=== PATIENT | male | born 1940 | race Caucasian/White ===

== ENCOUNTER → 2019-01-20 06:59 | Outpatient (CLI) | payer MEDICARE, OTHER, SELFPAY ==
[2018-10-01 11:34] VITALS: BMI 36.3
--- NOTE | 2019-01-20 13:40 | STRESSREP_ITS ---
Stress Test Report Date: 01-20-19 Procedure: Pharmacologic stress nuclear imaging study Indications: Chest pain/angina pectoris; CAD; CABG Consent: Per the patient Procedure: The patient underwent pharmacologic (Regadenoson) evaluation with a peak heart rate of 79 beats per minute (55 %predicted maximal heart rate) and a peak blood pressure of 130/86 mmHg. The baseline ECG demonstrated sinus rhythm; left bundle branch block. The peak pharmacologic ECG demonstrated continued left bundle branch block pattern. There was a rare PVC pretest, during infusion, and recovery. The patient noted waxing and waning chest discomfort during infusion/recovery with spontaneous resolution in recovery. The examination was discontinued secondary to completion of protocol. Impression: 1. Pharmacologic (Regadenoson) evaluation 2. Peak pharmacologic ECG with continued left bundle branch block pattern. 3. There was a rare PVC pretest, during infusion, and recovery. 4. Nuclear images pending Myocardial perfusion imaging study: Technique: The patient was injected with 15.0 millicuries of technetium 99m Cardiolite and subsequently rest SPECT Cardiolite nuclear imaging was obtained in the horizontal long, vertical long, and short axis views. The patient underwent pharmacologic (Regadenoson) evaluation with a peak heart rate of 79 beats per minute (55 % percent predicted maximal heart rate) and a peak blood pressure of 130/86 mmHg. The patient was injected with 45.0 millicuries of technetium 99m Cardiolite and subsequently stress SPECT Cardiolite nuclear imaging was obtained in the horizontal long, vertical long, and short axis views. A gated Cardiolite study at peak stress was obtained. Interpretation: Rest and stress SPECT Cardiolite nuclear imaging status post realignment, normalization, and attenuation correction demonstrate at rest the appearance of an area of diminished tracer uptake in portions of the distal anterior/anterior apical segments which appears to improve following stress. Following stress there is notation of diminished myocardial perfusion/tracer uptake in portions of the basal to mid inferior septal, inferior, and inferolateral segments as well as the distal inferior lateral segments. There is diminished end systolic thickening and brightening in the aforementioned areas. The gated Cardiolite study demonstrates diminished myocardial thickening and inward wall motion in the aforementioned areas. The reported LVEF is 40 %. Impression: 1. Rest and stress SPECT cardiac nuclear imaging demonstrate myocardial perfusion changes at rest which appear to improve following stress potentially compatible shifting soft tissue attenuation/artifact, however, post stress myocardial perfusion changes demonstrate areas of diminished myocardial perfusion/tracer uptake in portions of the basal to mid inferior septal, inferior, and inferolateral segments as well as the distal inferolateral segments which appear to improve at rest thus appearing compatible with stress- induced myocardial ischemia. 2. The gated Cardiolite study reports an LVEF of 40 %. This note was generated with [employer] software. It may contain incorrect words, spelling, and punctuation that were not noted in checking the note before signing.
== END ==
PROVIDERS: Family Provider Family Medicine; PCP Family Medicine; Referring Provider Nurse Practitioner Family; Visit Provider Nurse Practitioner Family
DX: R07.9 Chest pain, unspecified (principal); I25.810 Atherosclerosis of coronary artery bypass graft(s) without angina pectoris; I10 Essential (primary) hypertension; E78.5 Hyperlipidemia, unspecified; Z95.1 Presence of aortocoronary bypass graft
CPT/HCPCS: 78452; 93017; A9500; A4216; J2785

== ENCOUNTER 2019-01-24 02:57 | Inpatient (IN) | payer MEDICARE, OTHER, SELFPAY ==
[2018-10-01 11:34] VITALS: BMI 36.3
[2019-01-24] VITALS (12 sets, daily range): BP systolic 126–160; BP diastolic 70–78; PULSE 52–76; RESP 16–18; TEMP 36.6–37; O2SAT 94–99; BMI 36.6; BMI 36.0
--- NOTE | 2019-01-24 03:04 | RAD_ITS ---
HISTORY: Chest Pain EXAMINATION/TECHNIQUE: XR Chest 1 View: Portable COMPARISON: 04/26/2017 FINDINGS: EKG leads in place. No significant change. Limited inspiration with bibasilar mild scarring. No acute infiltrate. Normal heart size. No vascular congestion or significant pleural effusion. No pneumothorax. Median sternotomy sutures and mediastinal surgical clips related to previous CABG. RAD/Chest 1 View (Portable) IMPRESSION: 1. No acute cardiopulmonary disease. No significant interval change. 2. Bibasilar mild scarring. 3. Previous CABG. at 0336 Reported and signed by: Cooper Cavazos MD Electronically Signed: Cooper Cavazos, at 3:34 EDT Tel , Service support ,
--- NOTE | 2019-01-24 03:04 | EKG12_ITS ---
Test Reason : CP Blood Pressure : / mmHG Vent. Rate : 071 BPM Atrial Rate : 071 BPM P-R Int : 224 ms QRS Dur : 176 ms QT Int : 450 ms P-R-T Axes : 061 055 228 degrees QTc Int : 489 ms Sinus rhythm with 1st degree A-V block Left bundle branch block Abnormal ECG Confirmed by JOSE EMMANUEL, MADY ([id number]), commissioning editor MARK OBANDO ([id number]) on 01/30/2019 11:19:34 AM Referred By: Hemant Hernandez Confirmed By:MADY GARCIA MD
[2019-01-24 03:14] LABS: Absolute Lymphocyte Count 1.48 X10^3/uL (0.83-4.51); Absolute Neutrophil Count 3.9 X10^3/uL (2.0-7.7); Basophil# 0.04 X10^3/uL; Basophil% 0.6 % (0-1); Eosinophil# 0.11 X10^3/uL; Eosinophils% 1.8 % (0-5); Hematocrit 48.2 % (40-54); Hemoglobin 16.2 g/dL (13.0-16.5); Lymphocyte # 1.48 X10^3/ul (4.0); Lymphocyte % 23.8 % (19-41); Mean Corp Hgb Conc 33.6 g/dL (32-36); Mean Corpuscular Hgb 32.5 pg (27.0-32.0); Mean Corpuscular Volume 96.6 fL (80-94); Monocyte# 0.64 X10^3/uL; Monocyte% 10.3 % (0-10); NRBC Flagged by Analyzer 0 % (0-5); Neutrophil # 3.92 X10^3/uL (2.7-7.7); Platelet Count 185 K/mm3 (150-450); RBC Distribution Width CV 12.9 % (11.6-14.6); Red Blood Count 4.99 M/mm3 (4.6-6.2); White Blood Count 6.2 K/mm3 (4.4-11.0)
[2019-01-24 03:32] LABS: Anion Gap 5 (5-15); BUN 16 mg/dL (7-18); BUN/Creat Ratio 10.9 RATIO (10-20); Calcium,Total 8.9 mg/dL (8.5-10.1); Chloride 104 mmol/L (98-107); Creatinine, Serum 1.47 mg/dL (0.70-1.30); EST Glomerular Filtration Rate 49 mL/min (>60); Est Glom Filt Rate - Afr Amer 60 mL/min (>60); Estimated Creatinine Clearance 42.76 ml/min; Glucose 163 mg/dL (74-106); Potassium 3.8 mmol/L (3.5-5.1); Sodium Level 140 mmol/L (136-145)
--- NOTE | 2019-01-24 04:24 | ED.DCSUM_ITS ---
- ER Visit Summary Date of Service: 01/24/19 Chief Complaint: Chest pain History of Present Illness: The patient is a 78 M who presents the emergency department with chest pain. Patient states that over the past year he has had angina which he takes nitrates for. He describes it as a burning sensation in his chest that radiates to pain into the arm. He follows with Dr. Benoit. He had a 5 vessel CABG in 2000 in [facility]. He reports that he had a stress test on 01/20 which was abnormal and has subsequently scheduled a heart catheterization on 02/03. Tonight around 2230 hours he felt his anginal pain come on and he again took nitroglycerin. The symptoms were not abating and decision was made to come to the emergency department. By the time he arrived here he had had 5 nitroglycerin and was no longer having pain. He has a known left bundle branch block. Physical Examination: Afebrile vital signs stable Gen: Well-nourished well-developed Head: Normocephalic atraumatic Eyes: Perrl EOMI ENT: TMs clear no rhinorrhea moist mucous membranes Neck: Supple no lymphadenopathy no JVD nontender CVS: Regular rate rhythm no murmurs normal S1-S2 Respiratory: No distress clear to auscultation bilaterally chest nontender Abdomen: Soft nontender nondistended normal bowel sounds no masses Back: Nontender Extremity: Nontender no edema Skin: Normal color no rash Neuro: alert orientated ?3 CN II-XII intact normal strength sensation reflexes gait cerebellar Psych: Normal affect normal mood Test Results: EKG shows a normal sinus rhythm with a first-degree AV block and a known left bundle branch block. Creatinine 1.48. Last creatinine I have a year and half ago was 1.45. Troponin tonight 0.081. Emergency Department Course and Treatment: Patient received aspirin. I spoke with cardiology and her hospitalist. I also sat down spoke with the patient his and son. We talked about whether or not he should be transferred to tertiary care for a potential heart cath before Saturday. At this point he would like to stay here have his heart enzymes cycled and discuss with cardiology. Impression: 1. Unstable angina This note was generated with [email or web address] dictation software. It may contain incorrect words, spelling, and punctuation that were not noted in review of the chart prior to signing ED Disposition - Plan for ED Patient: Referrals: Matias Lopez [Primary Care Provider] -
[2019-01-24] MEDS: Aspirin 325 MG Tablet PO (04:26)
--- NOTE | 2019-01-24 04:33 | HP.PCM_ITS ---
Problem List (1) NSTEMI (non-ST elevated myocardial infarction) Status: Acute History of Present Illness Date of Admission: 01/24/19 Chief Complaint: Chest Pain The patient is a 78 year old M with a significant history of CAD status post 5 vessel CABG in 2000; and hypertension who recently had an abnormal stress test and is scheduled for cardiac cath on February 03 2019 presenting with substernal chest pain that radiates to his bilateral arms. His chest pain is episodic. It is a burning type of chest pain. However the pain in his arms is sharp. His chest pain started about 4 hours prior to presentation. He has had about a year span of intermittently chest Pain. Typically, he takes about 1 tablet of nitroglycerin and his pain goes away. This time around he took 1 tablet of nitroglycerin for 5 times. Each time he had some relief but the pain came back. He denies any nausea; vomiting; diaphoresis or chest pain associated with the pain. His chest pain increased with going up the stairs. He called his son who brought him to the emergency department. At the emergency department patient had no chest pain. The Emergency department doctor discussed the case with cardiology. Patient was given the choice to be transferred to a tertiary institution and probably have a heart cath over there or be admitted at our hospital. Patient chose to stay at our Hospital. He follows up with Dr. Benoit. A stress test done on 01/20/2019 was abnormal. Before this presentation an outpatient cardiac cath has been scheduled for February 03, 2019. As stated above for about a year he has had this chest pain that he calls 'angina'. The chest pain always radiates to his bilateral arms. Typically he takes one nitroglycerin and the pain goes away. In the past he has also took Tums with resolution of symptoms. On this presentation Tums did not help him. Past Medical History Past Medical History (Chronic Problems): Chronic Problems (Last Reviewed 01/24/19 @ 07:22 by Hemant Hernandez MD) Presence of aortocoronary bypass graft (Chronic ~09/2000) CABG with CASPER to LAD, SVG to diagonal 1 and sequential to diagonal 2, SVG to OM1, and SVG to RCA Essential hypertension (Chronic) Atherosclerosis of coronary artery bypass graft without angina pectoris (Chronic) Status post CABG with CASPER to LAD, SVG to diagonal 1 and sequential to diagonal 2, SVG to OM1, and SVG to RCA Hyperlipidemia (Chronic) Medical History: Medical History (Last Reviewed 01/24/19 @ 07:22 by Hemant Hernandez MD) Essential hypertension (Chronic) I10 Abnormal stress test (Acute) R94.39 Chest pain, unspecified (Acute) R07.9 Atherosclerosis of coronary artery bypass graft without angina pectoris (Chronic) I25.810 Status post CABG with CASPER to LAD, SVG to diagonal 1 and sequential to diagonal 2, SVG to OM1, and SVG to RCA Hyperlipidemia (Chronic) E78.5 DJD (degenerative joint disease) M19.90 History of stress test Onset Date: ~01/2013 Z92.89 CAD (coronary artery disease) (Inactive) I25.10 Hypertension (Inactive) I10 Allergies No Known Allergies Allergy (Verified 01/24/19 03:03) Home Medications: Ambulatory Orders Medication Instructions Recorded aspirin 81 mg tablet,delayed 81 mg PO QDAY 03/25/17 release atorvastatin 20 mg tablet 40 mg PO QDAY 03/25/17 losartan 100 1 tab PO QDAY 03/25/17 mg-hydrochlorothiazide 25 mg tablet metoprolol succinate ER 100 mg 100 mg PO QDAY 03/25/17 tablet,extended release 24 hr clopidogrel 75 mg tablet 75 mg PO QDAY #30 tab 04/24/17 nitroglycerin 0.4 mg sublingual 0.4 mg SUBLINGUAL Q5M PRN #25 tab 10/15/18 tablet ranolazine ER 1,000 mg 500 mg PO BID #60 tab 12/10/18 tablet,extended release,12 hr isosorbide mononitrate ER 60 mg 60 mg PO BID #60 tab 12/29/18 tablet,extended release 24 hr Surgical History: Surgical History (Last Reviewed 01/24/19 @ 05:21 by Hemant Hernandez MD) Presence of aortocoronary bypass graft (Chronic) Onset Date: ~09/2000 Z95.1 CABG with CASPER to LAD, SVG to diagonal 1 and sequential to diagonal 2, SVG to OM1, and SVG to RCA History of cholecystectomy Z98.890, Z90.49 History of hernia repair Z98.890, Z87.19 Hx of CABG Onset Date: ~09/2000 Z95.1 x5 S/P CABG (coronary artery bypass graft) (Inactive) Onset Date: ~2000 Z95.1 Status post CABG with CASPER to LAD, SVG to diagonal 1 and sequential to diagonal 2, SVG to OM1, and SVG to RCA Lives: Spouse/ Significant Other Smoking Status: Never smoker Alcohol: Occasional - *Family History Maternal Family History: Family History (Last Reviewed 01/24/19 @ 05:21 by Hemant Hernandez MD) Mother Hypertension Father Heart disease Review of Systems Constitutional: Denies: Chills, Fever, Weight Change HEENT: Denies: Head Aches, Sinus Congestion, Sinus Drainage Cardiovascular: Reports: Chest Pain. Denies: Palpitations Respiratory: Denies: Cough, Shortness of breath at rest, Sputum production Gastrointestinal: Denies: Abdominal Pain, Nausea, Vomiting Genitourinary: Denies: Dysuria Musculoskeletal: Reports: Arm Pain. Denies: Joint Pain, Joint Tenderness Skin: Denies: Rash, Wounds Neurological: Denies: Numbness, Tingling, Focal weakness Psychiatric: Denies: Anxiety, Depression, Homicidal Ideations, Suicidal I deations Hematologic/ Lymphatic: Denies: Easy Bruising, Easy Bleeding VTE Information - Inpt Only VTE Present on Admission: No VTE Mechan Device Prophylaxis: None VTE Pharm Prophylaxis ordered?: Yes Patient Problems: Active and Suspected Problems (Last Reviewed 01/24/19 @ 07:22 by Hemant Hernandez MD) NSTEMI (non-ST elevated myocardial infarction) (Acute) - Physical Exam General: Alert, Oriented x3, Cooperative HEENT: Atraumatic, PERRLA, EOMI, Normocephalic Neck: Supple, No JVD, Negative Carotid Bruits Lungs: Clear to auscultation, Normal air movement Cardiovascular: Regular rate, No murmurs Abdomen: Bowel Sounds Present, Soft, Non Tender Extremities: No edema, Capillary Refill Less than 3 Seconds Skin: No rashes, No breakdown Musculoskeletal: No Tenderness to Palpation of Joints or Extremities Neurological: Cranial nerves II-XII grossly intact Psych/Mental Status: Normal Affect, Appropriate Vital Signs Temp Pulse Resp BP Pulse Ox 98.6 F 68 18 160/75 H 96 01/24/19 02:58 01/24/19 04:24 01/24/19 04:24 01/24/19 02:58 01/24/19 04:24 Oxygen Delivery Method Room Air Weight: 115.7 kg Body Mass Index (BMI) 36.6 Laboratory Tests Past 24 Hrs 01/24/19 01/24/19 03:06 03:06 WBC 6.2 RBC 4.99 Hgb 16.2 Hct 48.2 MCV 96.6 H MCH 32.5 H MCHC 33.6 RDW Std Deviation 46.0 H RDW Coeff of [place] 12.9 Plt Count 185 MPV 9.0 Immature Gran % (Auto) 0.500 Neut % (Auto) 63.0 Lymph % (Auto) 23.8 [place] % (Auto) 10.3 H Eos % (Auto) 1.8 Baso % (Auto) 0.6 Absolute Neuts (auto) 3.9 Absolute Lymphs (auto) 1.48 Nucleated RBC % 0 Sodium 140 Potassium 3.8 Chloride 104 Carbon Dioxide 31.0 Anion Gap 5 BUN 16 Creatinine 1.47 H Estim Creat Clear Calc 42.76 Est GFR (MDRD) Af Amer 60 Est GFR (MDRD) Non-Af 49 L BUN/Creatinine Ratio 10.9 Glucose 163 H Calcium 8.9 Troponin I 0.081 H Assessment/Plan All Active Problems (Last Reviewed 01/24/19 @ 07:22 by Hemant Hernandez MD) NSTEMI (non-ST elevated myocardial infarction) (Acute) Abnormal stress test (Acute) Chest pain, unspecified (Acute) The patient is a 78 year old M with a significant history of CAD status post 5 vessel CABG in 2000; and hypertension who recently had an abnormal stress test and is scheduled for cardiac cath on January 2019 presenting with substernal chest pain that radiates to his bilateral arms and noted to have elevated troponin consistent with probable non-STEMI. Non-ST elevation NC Place on a monitored bed at PCU CXR independently reviewed confirms no acute cardiopulmonary process. EKG independently reviewed confirms left bundle branch block with first-degree AV block. Recent stress test showed baseline left bundle branch block. ASA 81 mg p.o. daily SL NTG 0.4 mg prn as needed for chest pain. Imdur; losartan; metoprolol; and ranolazine continued Statin: High-intensity statin continued Serial cardiac enzymes Stat EKG as needed for chest pain Cardiology consulted. CKD stage III On presentation his creatinine was 1.47. Review of old records showed creatinine of 1.45. Likely CKD; stable. Hypertension On presentation with blood pressure was erratic. Imdur; losartan?hydrochlorothiazide; and metoprolol continued. DVT prophylaxis Subcutaneous Heparin ordered. Code Visit Inpatient E&M: 36700 Init Hosp L3
--- NOTE | 2019-01-24 05:40 | EKG12_ITS ---
Test Reason : CP ADMISSION Blood Pressure : / mmHG Vent. Rate : 059 BPM Atrial Rate : 059 BPM P-R Int : 272 ms QRS Dur : 176 ms QT Int : 464 ms P-R-T Axes : 057 050 165 degrees QTc Int : 459 ms Sinus bradycardia with 1st degree A-V block Left bundle branch block Abnormal ECG No previous ECGs available Confirmed by DAXA EMMANUEL, PIETRO ([id number]), market editor MARK OBANDO ([id number]) on 01/30/2019 11:31:14 AM Referred By: Hemant Hernandez Confirmed By:PIETRO MITTAL MD
[2019-01-24] MEDS: Clopidogrel Bisulfate 75 MG Tablet PO (09:43)
[2019-01-24] MEDS: Aspirin E.C. 81 MG Tablet PO (09:43)
[2019-01-24] MEDS: Heparin Injection (Vial) 5,000 UNIT/ML VIAL 5000 UNIT SC (09:44)
[2019-01-24] MEDS: Isosorbide Mononitrate 60 MG Tablet PO ×2 (09:44→21:25)
[2019-01-24] MEDS: Losartan Potassium 100 MG Tablet PO (09:44)
[2019-01-24] MEDS: hydroCHLOROthiazide 25 MG Tablet PO (09:44)
[2019-01-24] MEDS: Ranolazine 500 MG Tablet PO ×2 (09:44→21:25)
--- NOTE | 2019-01-24 09:52 | PCM.PN.HOSP ---
Patient Problems: Active and Suspected Problems (Last Reviewed 01/24/19 @ 07:22 by Hemant Hernandez MD) NSTEMI (non-ST elevated myocardial infarction) (Acute) Subjective: No further chest pain. Similar to prior episodes of chest pain. Vitals/I&O's: Vital Signs Temp Pulse Resp BP Pulse Ox 36.8 C 52 L 18 143/72 H 94 01/24/19 05:43 01/24/19 08:02 01/24/19 05:43 01/24/19 05:43 01/24/19 07:30 Oxygen Delivery Method Room Air Weight: 113.9 kg Body Mass Index (BMI) 36.0 General: Alert, No apparent distress HEENT: Atraumatic, Normocephalic Oral: Moist Mucosa, No Gingival or Mucosal Lesions/ Ulcerations Neck: No Nodes, Thyroid Normal Size and Texture Lungs: Clear to auscultation, Normal air movement, No rhonchi, No wheeze, No rales Cardiovascular: Regular rate, Regular Rhythm, Normal S1, Normal S2, No murmurs Abdomen: Bowel Sounds Present, Soft, Non Tender, Non-Distended, No Hepato-splenomegaly Extremities: No edema, No Calf Tenderness Skin: No rashes, No breakdown Psych/Mental Status: Normal Affect, Appropriate Laboratory Results 01/24/19 03:06: WBC 6.2, RBC 4.99, Hgb 16.2, Hct 48.2, MCV 96.6 H, MCH 32.5 H, MCHC 33.6, RDW Std Deviation 46.0 H, RDW Coeff of Be[place] 12.9, Plt Count 185, MPV 9.0, Immature Gran % (Auto) 0.500, Neut % (Auto) 63.0, Lymph % (Auto) 23.8, [place] % (Auto) 10.3 H, Eos % (Auto) 1.8, Baso % (Auto) 0.6, Absolute Neuts (auto) 3.9, Absolute Lymphs (auto) 1.48, Nucleated RBC % 0 01/24/19 03:06: Sodium 140, Potassium 3.8, Chloride 104, Carbon Dioxide 31.0, Anion Gap 5, BUN 16, Creatinine 1.47 H, Estim Creat Clear Calc 42.76, Est GFR (MDRD) Af Amer 60, Est GFR (MDRD) Non-Af 49 L, BUN/Creatinine Ratio 10.9, Glucose 163 H, Calcium 8.9, Troponin I 0.081 H 01/24/19 06:10: Troponin I 0.088 H 01/24/19 08:36: Troponin I 0.113 H Current Medications Acetaminophen (Tylenol) 650 mg PO Q6H PRN PRN PRN Reason: Pain Score 1-3/Temp > 100.7 F [facility]ir[facility] ([facility]) [facility] Last Admin: 01/24/19 09:43 Dose: 81 mg Documented by: Atorvastatin Calcium (Lipitor) 40 mg PO DAILY@2200 [facility] Clopidogrel Bisulfate (Plavix) 75 mg PO DAILY [facility] Last Admin: 01/24/19 09:43 Dose: 75 mg Documented by: Dextrose (D50w Syringe) 0 gm IV X1 PRN; Protocol PRN Reason: Hypoglycemia Glucagon () 1 mg IM .X1 PRN PRN Reason: Hypoglycemia Heparin Sodium (Porcine) (Heparin Na) 5,000 unit SC Q12 [facility] Last Admin: 01/24/19 09:44 Dose: 5,000 unit Documented by: Hydrochlorothiazide (Hctz) 25 mg PO DAILY [facility] Last Admin: 01/24/19 09:44 Dose: 25 mg Documented by: Isosorbide Mononitrate (Imdur) 60 mg PO BID [facility] Last Admin: 01/24/19 09:44 Dose: 60 mg Documented by: Losartan Potassium (Cozaar) 100 mg PO DAILY [facility] Last Admin: 01/24/19 09:44 Dose: 100 mg Documented by: Metoprolol Succinate (Toprol Xl (Beta Katarina)) 100 mg PO DAILY [facility] Nitroglycerin (Nitrostat) 0.4 mg SUBLINGUAL Q5M PRN PRN Reason: CARDIAC/CHEST PAIN Ondansetron HCl (Zofran) 4 mg IV Q8H PRN PRN PRN Reason: NAUSEA/VOMITING Ranolazine (Ranexa) 500 mg PO BID [facility] Last Admin: 01/24/19 09:44 Dose: 500 mg Documented by: STROKE Vital Signs/Narrative: Vital Signs Pulse Pulse Ox 01/24/19 08:02 52 L 01/24/19 07:30 94 Medical Necessity - Tobacco Use Smoking Status: Never smoker Assessment/Plan All Active Problems (Last Reviewed 01/24/19 @ 07:22 by Hemant Hernandez MD) NSTEMI (non-ST elevated myocardial infarction) (Acute) Abnormal stress test (Acute) Chest pain, unspecified (Acute) 1. suspected NSTEMI troponins slightly elevated and trended upwards known abnormal stress test and was to have a LHC on the . symptoms currently resolved cardiology consult pending on isosorbide, losartan, metoprolol, ASA, clopidogrel, and atorvastatin. Code Visit Procedures: Other Procedure - See Report - non-billable rounding.
--- NOTE | 2019-01-24 10:18 | PCM.CONS.C ---
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 transplanted heart: [place] heart Qualified Code(s): I25.810 - Atherosclerosis of coronary artery bypass graft(s) without angina pectoris Comment: Status post CABG with CASPER to LAD, SVG to diagonal 1 and sequential to diagonal 2, SVG to OM1, and SVG to RCA Reason for Consult Date of Consultation: 01/24/19 Reason for Consultation: NSTEMI History of Present Illness: The patient is a 78 year old man with a significant history of CAD status post quintuple coronary bypass grafting surgery in 2000, hypertension who is an established patient from Dr. Benoit. He recently was seen in the office following the an abnormal stress test which was consistent with inferoseptal ischemia and is scheduled for cardiac cath on February 03 2019. He presented last night with status post prolonged anginal episode for which she had to take nitroglycerin x5. Upon presentation to the emergency room, he was pain-free. ECG was nonconclusive, as the patient had a history of chronic left bundle branch block. Subsequently, he was ruled in for a non-ST elevation myocardial infarction with slight elevation of cardiac biomarkers with troponins of 0.113 this AM. At the moment to my exam, he is asymptomatic. Last assessed left ventricular ejection fraction in the range of low 40% He denies any nausea; vomiting; diaphoresis or chest pain associated with the pain. Home medications list reviewed. The patient is on dual antiplatelet therapy with aspirin and Plavix. Past Medical History Allergies/Adverse Reactions: Allergies No Known Allergies Allergy (Verified 01/24/19 03:03) Home Medications: Ambulatory Orders Medication Instructions Recorded aspirin 81 mg tablet,delayed 81 mg PO QDAY 03/25/17 release atorvastatin 20 mg tablet 40 mg PO QDAY 03/25/17 losartan 100 1 tab PO QDAY 03/25/17 mg-hydrochlorothiazide 25 mg tablet metoprolol succinate ER 100 mg 100 mg PO QDAY 03/25/17 tablet,extended release 24 hr clopidogrel 75 mg tablet 75 mg PO QDAY #30 tab 04/24/17 nitroglycerin 0.4 mg sublingual 0.4 mg SUBLINGUAL Q5M PRN #25 tab 10/15/18 tablet ranolazine ER 1,000 mg 500 mg PO BID #60 tab 12/10/18 tablet,extended release,12 hr isosorbide mononitrate ER 60 mg 60 mg PO BID #60 tab 12/29/18 tablet,extended release 24 hr Past Medical History (Chronic Problems): Chronic Problems (Last Reviewed 01/24/19 @ 07:22 by Hemant Hernandez MD) Presence of aortocoronary bypass graft (Chronic ~09/2000) CABG with CASPER to LAD, SVG to diagonal 1 and sequential to diagonal 2, SVG to OM1, and SVG to RCA Essential hypertension (Chronic) Atherosclerosis of coronary artery bypass graft without angina pectoris (Chronic) Status post CABG with CASPER to LAD, SVG to diagonal 1 and sequential to diagonal 2, SVG to OM1, and SVG to RCA Hyperlipidemia (Chronic) - *Family History Maternal Family History: Family History (Last Reviewed 01/24/19 @ 05:21 by Hemant Hernandez MD) Mother Hypertension Father Heart disease Lives: Spouse/ Significant Other Smoking Status: Never smoker Alcohol: Occasional Review of Systems - Review of Systems General: Denies: Fever, Night Sweats, Fatigue Cardiovascular: Reports: Chest Discomfort, Chest Discomfort at Rest Respiratory: Denies: Cough, Sputum Production, Hemoptysis Gastrointestinal: Denies: Hematemesis, Hematochezia, Melena Genitourinary: Denies: Dysuria, Hematuria Skin: Denies: Rash Objective: Vital Signs Temp Pulse Resp BP Pulse Ox 98.3 F 52 L 18 143/72 H 94 01/24/19 05:43 01/24/19 08:02 01/24/19 05:43 01/24/19 05:43 01/24/19 07:30 Oxygen Delivery Method Room Air Weight: 113.9 kg Body Mass Index (BMI) 36.0 General: Awake, Alert, Oriented x 3 HEENT: PERRL, EOMI, Sclera Non Icteric Neck: Supple, Good ROM, No Lymph Node Enlargement Lungs: Clear to auscultation Cardiovascular: Regular Rhythm, Normal S1, Normal S2, No Murmurs, No Rubs, No Gallops Vascular: No Carotid Bruits, Normal Femoral Pulses, Normal Radial Pulses, Normal Dorsalis Pedal Pulse, Normal Posterior Tibial Pulses Extremities: No Cyanosis, No Clubbing, No edema Neurological: No Focal Motor or Sensory Deficit 01/24/19 03:06: WBC 6.2, RBC 4.99, Hgb 16.2, Hct 48.2, MCV 96.6 H, MCH 32.5 H, MCHC 33.6, Plt Count 185, MPV 9.0, Immature Gran % (Auto) 0.500, Neut % (Auto) 63.0, Lymph % (Auto) 23.8, [place] % (Auto) 10.3 H, Eos % (Auto) 1.8, Baso % (Auto) 0.6, Absolute Neuts (auto) 3.9, Nucleated RBC % 0 01/24/19 03:06: Sodium 140, Potassium 3.8, Chloride 104, Carbon Dioxide 31.0, Anion Gap 5, BUN 16, Creatinine 1.47 H, Est GFR (MDRD) Af Amer 60, Est GFR (MDRD) Non-Af 49 L, BUN/Creatinine Ratio 10.9, Glucose 163 H, Calcium 8.9, Troponin I 0.081 H 01/24/19 06:10: Troponin I 0.088 H 01/24/19 08:36: Troponin I 0.113 H Rhythm: EKG: SR LBBB (old) ECHO: Stress Test: Cardiac Cath: PCI: CT Surgery: Holter monitor: EPS: PPM: CXR: Chest CT Scan: Assessment/Plan 1. Acute coronary syndrome, non-ST elevation myocardial infarction. The patient is currently pain-free. Continue dual antiplatelet therapy, beta-blockers. Anticoagulation with heparin IV. For invasive assessment with a heart catheterization on Saturday. If chest pains recur, IV nitroglycerin drip Due to slightly elevated creatinine, may require pre-and postprocedural IV hydration. Code Visit Inpatient E&M: 87817 Init Hosp L2
[2019-01-24 12:50] LABS: Prothrombin Time (Protime)PT. 13.4 SECONDS (11.7-14.9)
[2019-01-24] MEDS: HEPARIN/D5w 25,000 UNITS 25,000 UNITS/250 ML IV.SOLN. 15 UNITS IV (12:50)
[2019-01-24 12:51] LABS: Partial Thromboplast Time 26.4 Seconds (24.1-36.2)
--- NOTE | 2019-01-24 14:24 | CM.UR ---
Heart cath planned for Saturday. Patient is traditional [facility] so if transfer is necessary, he can go to [facility] facility of his choice. Silke Sandy RN, [facility].
--- NOTE | 2019-01-24 15:51 | CM.UR ---
RN CM Assessment Introduced role of RN CM to patient. Patient is alert and able to participate in RN CM Assessment. Care providers, pharmacy, and demographics verified. No family at bedside. Presentation: chest pain Admit Dx: Abnormal Stress test. Re-Admit: No Barriers/Issues: None PCP: Dr. Matias Lopez Specialists: Kaycee Preferred Pharmacy: [facility] mail pharmSushma Sol for urgent needs. Insurance: [facility] with AARP supplement. Rx Benefit: Yes LNOK: Lise LW/HPOA: Yes, none on file. HPOA is , lise. States he'll call her and remind her to bring it for when he comes tomorrow. Living Arrangements: 2 story home with . first floor master. ADL?s: Independent with all ADLS. Transportation: Self DME: [facility] DME co: no preference. HHC: None SNF: None Goal: Home DC PLAN: Home, no needs anticipated. Explained CM will remain available should any needs arise. Silke Sandy RN, CCM.
[2019-01-24 18:29] LABS: Partial Thromboplast Time 62.6 Seconds (24.1-36.2)
[2019-01-24] MEDS: Atorvastatin Calcium 40 MG Tablet PO (21:25)
[2019-01-25] VITALS (12 sets, daily range): BP systolic 104–168; BP diastolic 65–105; PULSE 53–82; RESP 16–18; TEMP 36.7–37.1; O2SAT 93–97
[2019-01-25 00:32] LABS: Partial Thromboplast Time 86.5 Seconds (24.1-36.2)
[2019-01-25] MEDS: HEPARIN/D5w 25,000 UNITS 25,000 UNITS/250 ML IV.SOLN. 14 UNITS IV (04:43)
[2019-01-25 06:50] LABS: Absolute Lymphocyte Count 1.62 X10^3/uL (0.83-4.51); Absolute Neutrophil Count 3.4 X10^3/uL (2.0-7.7); Basophil# 0.04 X10^3/uL; Basophil% 0.7 % (0-1); Eosinophil# 0.13 X10^3/uL; Eosinophils% 2.3 % (0-5); Hematocrit 46.1 % (40-54); Hemoglobin 15.7 g/dL (13.0-16.5); Lymphocyte # 1.62 X10^3/ul (4.0); Lymphocyte % 28.2 % (19-41); Mean Corp Hgb Conc 34.1 g/dL (32-36); Mean Corpuscular Hgb 32.8 pg (27.0-32.0); Mean Corpuscular Volume 96.4 fL (80-94); Mean Platelet Vol. 9.3 fl (6.2-12.0); Monocyte# 0.56 X10^3/uL; Monocyte% 9.8 % (0-10); NRBC Flagged by Analyzer 0 % (0-5); Neutrophil # 3.36 X10^3/uL (2.7-7.7); Neutrophil % 58.5 % (47-70); Platelet Count 163 K/mm3 (150-450); RBC Distribution Width CV 13.1 % (11.6-14.6); RBC Distribution Width SD 46.5 fl (35.1-43.9); Red Blood Count 4.78 M/mm3 (4.6-6.2); White Blood Count 5.7 K/mm3 (4.4-11.0)
[2019-01-25 06:59] LABS: Partial Thromboplast Time 93.8 Seconds (24.1-36.2)
[2019-01-25] MEDS: Aspirin E.C. 81 MG Tablet PO (08:21)
[2019-01-25] MEDS: Isosorbide Mononitrate 60 MG Tablet PO ×2 (08:22→21:19)
[2019-01-25] MEDS: hydroCHLOROthiazide 25 MG Tablet PO (08:22)
[2019-01-25] MEDS: Clopidogrel Bisulfate 75 MG Tablet PO (08:22)
[2019-01-25] MEDS: Losartan Potassium 100 MG Tablet PO (08:22)
[2019-01-25] MEDS: Ranolazine 500 MG Tablet PO ×2 (08:23→21:19)
[2019-01-25] MEDS: Pantoprazole Sodium 20 MG Tablet PO (08:29)
--- NOTE | 2019-01-25 08:48 | PN_ITS ---
Patient Problems: Active and Suspected Problems (Last Reviewed 01/24/19 @ 07:22 by Hemant Hernandez MD) NSTEMI (non-ST elevated myocardial infarction) (Acute) Subjective: Feels well. No chest pain since admission. Was bradycardic, pt unsure if he was sleeping during the events or not. Vitals/I&O's: Vital Signs Temp Pulse Resp BP Pulse Ox 36.9 C 53 L 18 120/74 93 01/25/19 03:20 01/25/19 06:48 01/25/19 03:20 01/25/19 03:20 01/25/19 07:40 Oxygen Delivery Method Room Air Weight: 113.9 kg Body Mass Index (BMI) 36.0 Intake and Output for Last 24 Hours 01/23/19 01/24/19 01/25/19 23:59 23:59 23:59 Intake Total 1577.5 / 1577.5 230.80 / 230.80 Balance 1577.5 / 1577.5 230.80 / 230.80 General: Alert, No apparent distress, - - up in chair, eating breakfast. HEENT: Atraumatic, Normocephalic Oral: Moist Mucosa, No Gingival or Mucosal Lesions/ Ulcerations Neck: No Nodes, Thyroid Normal Size and Texture Lungs: Clear to auscultation, Normal air movement, No rhonchi, No wheeze Cardiovascular: Regular rate, Regular Rhythm, Normal S1, Normal S2 Abdomen: Bowel Sounds Present, Soft, Non Tender, Non-Distended, No Hepato- splenomegaly Extremities: No edema, No Calf Tenderness Skin: No rashes, No breakdown Psych/Mental Status: Normal Affect, Appropriate Laboratory Results 01/24/19 08:36: Troponin I 0.113 H 01/24/19 12:28: PT 13.4, INR 1.0, APTT 26.4 01/24/19 18:15: APTT 62.6 H 01/25/19 00:05: APTT 86.5 H 01/25/19 06:42: WBC 5.7, RBC 4.78, Hgb 15.7, Hct 46.1, MCV 96.4 H, MCH 32.8 H, MCHC 34.1, RDW Std Deviation 46.5 H, RDW Coeff of [place] 13.1, Plt Count 163, MPV 9.3, Immature Gran % (Auto) 0.500, Neut % (Auto) 58.5, Lymph % (Auto) 28.2, [place] % (Auto) 9.8, Eos % (Auto) 2.3, Baso % (Auto) 0.7, Absolute Neuts (auto) 3.4, Absolute Lymphs (auto) 1.62, Nucleated RBC % 0 01/25/19 06:42: APTT 93.8 H* Current Medications Acetaminophen (Tylenol) 650 mg PO Q6H PRN PRN PRN Reason: Pain Score 1-3/Temp > 100.7 F Aspirin (Ecotrin) 81 mg PO DAILYCM [facility] Last Admin: 01/25/19 08:21 Dose: 81 mg Documented by: Atorvastatin Calcium (Lipitor) 40 mg PO DAILY@2200 [facility] Last Admin: 01/24/19 21:25 Dose: 40 mg Documented by: Clopidogrel Bisulfate (Plavix) 75 mg PO DAILY [facility] Last Admin: 01/25/19 08:22 Dose: 75 mg Documented by: Dextrose (D50w Syringe) 0 gm IV X1 PRN; Protocol PRN Reason: Hypoglycemia Glucagon () 1 mg IM .X1 PRN PRN Reason: Hypoglycemia Heparin Sodium (Porcine) (Heparin Na) 0 unit IV UD PRN; Protocol Hydrochlorothiazide (Hctz) 25 mg PO DAILY [facility] Last Admin: 01/25/19 08:22 Dose: 25 mg Documented by: Heparin Sodium/Dextrose () 25,000 units in 250 mls @ 15 mls/hr IV .[id number] [facility]; Protocol Last Titration: 01/25/19 08:20 Dose: 12 mls/hr Documented by: Isosorbide Mononitrate (Imdur) 60 mg PO BID [facility] Last Admin: 01/25/19 08:22 Dose: 60 mg Documented by: Losartan Potassium (Cozaar) 100 mg PO DAILY [facility] Last Admin: 01/25/19 08:22 Dose: 100 mg Documented by: Metoprolol Succinate (Toprol Xl (Beta Katarina)) 100 mg PO DAILY [facility] Last Admin: 01/25/19 08:23 Dose: Not Given Documented by: Nitroglycerin (Nitrostat) 0.4 mg SUBLINGUAL Q5M PRN PRN Reason: CARDIAC/CHEST PAIN Ondansetron HCl (Zofran) 4 mg IV Q8H PRN PRN PRN Reason: NAUSEA/VOMITING Pantoprazole Sodium (Protonix) 20 mg PO DAILY [facility] Last Admin: 01/25/19 08:29 Dose: 20 mg Documented by: Ranolazine (Ranexa) 500 mg PO BID [facility] Last Admin: 01/25/19 08:23 Dose: 500 mg Documented by: STROKE Vital Signs/Narrative: Vital Signs Pulse Pulse Ox 01/25/19 07:40 93 01/25/19 06:48 53 L Medical Necessity - Tobacco Use Smoking Status: Never smoker Assessment/Plan All Active Problems (Last Reviewed 01/24/19 @ 07:22 by Hemant Hernanedz MD) NSTEMI (non-ST elevated myocardial infarction) (Acute) Abnormal stress test (Acute) Chest pain, unspecified (Acute) 1. suspected NSTEMI * troponins slightly elevated and trended upwards * known abnormal stress test and was to have a C on the . * symptoms currently resolved * cardiology consult pending * on isosorbide, losartan, metoprolol, ASA, clopidogrel, and atorvastatin. * on heparin gtt 2. bradycardia: * asymptomatic * metop succ held w HR less than 60 3. CKD3 * creatinine stable from 2018. * monitor 4. VTE prophylaxis: low risk as patient already anticoagulated. reeval if taken off heparin gtt and need for longer hospitalization Code Visit Inpatient E&M: 76868 Subs Hosp L2
--- NOTE | 2019-01-25 09:50 | PN.CARD_ITS ---
Subjectve: Denies any chest pain or shortness of breath. In good spirits. Issues with some bradycardia yesterday, asymptomatic. Objective: Vital Signs Temp Pulse Resp BP Pulse Ox 98.3 F 58 L 16 126/66 H 97 01/25/19 08:20 01/25/19 08:20 01/25/19 08:20 01/25/19 08:20 01/25/19 08:20 Oxygen Delivery Method Room Air Weight: 113.9 kg Body Mass Index (BMI) 36.0 Intake and Output for Last 24 Hours 01/23/19 01/24/19 01/25/19 23:59 23:59 23:59 Intake Total 1577.5 / 1577.5 230.80 / 230.80 Balance 1577.5 / 1577.5 230.80 / 230.80 General: Awake, Alert, Oriented x 3 HEENT: PERRL, EOMI, Sclera Non Icteric Neck: Supple, Good ROM, No Lymph Node Enlargement Lungs: Clear to auscultation Cardiovascular: Regular Rhythm, Normal S1, Normal S2, No Murmurs, No Rubs, No Gallops Vascular: No Carotid Bruits, Normal Femoral Pulses, Normal Radial Pulses, Normal Dorsalis Pedal Pulse, Normal Posterior Tibial Pulses Abdomen: Bowel Sounds Present, Soft, Non Tender, No HSM, No Organomegaly Extremities: No Cyanosis, No Clubbing, No edema Neurological: No Focal Motor or Sensory Deficit 01/24/19 12:28: PT 13.4, INR 1.0, APTT 26.4 01/24/19 18:15: APTT 62.6 H 01/25/19 00:05: APTT 86.5 H 01/25/19 06:42: WBC 5.7, RBC 4.78, Hgb 15.7, Hct 46.1, MCV 96.4 H, MCH 32.8 H, MCHC 34.1, Plt Count 163, MPV 9.3, Immature Gran % (Auto) 0.500, Neut % (Auto) 58.5, Lymph % (Auto) 28.2, [place] % (Auto) 9.8, Eos % (Auto) 2.3, Baso % (Auto) 0.7, Absolute Neuts (auto) 3.4, Nucleated RBC % 0 01/25/19 06:42: APTT 93.8 H* Rhythm: EKG: ECHO: Stress Test: Cardiac Cath: PCI: CT Surgery: Holter monitor: EPS: PPM: CXR: Chest CT Scan: Medical Necessity - Tobacco Use Smoking Status: Never smoker Assessment/Plan 1. Acute coronary syndrome, non-ST elevation myocardial infarction. Doing well, asymptomatic. For a left heart catheterization possible intervention tomorrow; continue guideline recommended medical therapy, along with anticoagulation with heparin. We will start IV fluids before the procedure. 2. Bradycardia, asymptomatic.
[2019-01-25 10:20] LABS: Hematocrit 49.6 % (40-54); Hemoglobin 16.5 g/dL (13.0-16.5); Mean Corp Hgb Conc 33.3 g/dL (32-36); Mean Corpuscular Hgb 32.5 pg (27.0-32.0); Mean Corpuscular Volume 97.6 fL (80-94); Mean Platelet Vol. 9.1 fl (6.2-12.0); Platelet Count 183 K/mm3 (150-450); RBC Distribution Width CV 13.1 % (11.6-14.6); Red Blood Count 5.08 M/mm3 (4.6-6.2); White Blood Count 5.6 K/mm3 (4.4-11.0)
[2019-01-25 10:33] LABS: Anion Gap 3 (5-15); BUN 16 mg/dL (7-18); BUN/Creat Ratio 11.7 RATIO (10-20); Calcium,Total 9.3 mg/dL (8.5-10.1); Chloride 102 mmol/L (98-107); Creatinine, Serum 1.37 mg/dL (0.70-1.30); EST Glomerular Filtration Rate 53 mL/min (>60); Est Glom Filt Rate - Afr Amer 65 mL/min (>60); Estimated Creatinine Clearance 45.88 ml/min; Glucose 183 mg/dL (74-106); Potassium 3.5 mmol/L (3.5-5.1); Sodium Level 139 mmol/L (136-145)
[2019-01-25 12:48] LABS: Partial Thromboplast Time 61.2 Seconds (24.1-36.2)
[2019-01-25 18:42] LABS: Partial Thromboplast Time 63.5 Seconds (24.1-36.2)
[2019-01-25] MEDS: Nitroglycerin (INPATIENT USE) 0.4 MG TAB.SUBL SUBLINGUAL (21:17)
[2019-01-25] MEDS: Atorvastatin Calcium 40 MG Tablet PO (21:19)
[2019-01-26] VITALS (33 sets, daily range): BP systolic 107–171; BP diastolic 54–88; PULSE 57–94; RESP 16–20; TEMP 36.8–37; O2SAT 94–96
[2019-01-26] MEDS: HEPARIN/D5w 25,000 UNITS 25,000 UNITS/250 ML IV.SOLN. 12 UNITS IV (02:39)
[2019-01-26] MEDS: Clopidogrel Bisulfate 75 MG Tablet PO (05:29)
[2019-01-26] MEDS: Aspirin E.C. 81 MG Tablet PO (05:29)
[2019-01-26] MEDS: Nitroglycerin (INPATIENT USE) 0.4 MG TAB.SUBL SUBLINGUAL ×3 (05:52→08:23)
--- NOTE | 2019-01-26 05:55 | EKG12_ITS ---
Test Reason : AM EKG Blood Pressure : / mmHG Vent. Rate : 074 BPM Atrial Rate : 074 BPM P-R Int : 284 ms QRS Dur : 176 ms QT Int : 472 ms P-R-T Axes : 072 051 173 degrees QTc Int : 523 ms Sinus rhythm with 1st degree A-V block Left bundle branch block Abnormal ECG Confirmed by DAXA EMMANUEL, PIETRO ([id number]), slot editor MARK OBANDO ([id number]) on 01/30/2019 11:27:51 AM Referred By: Hemant Hernandez Confirmed By:PIETRO MITTAL MD
[2019-01-26 06:10] LABS: Partial Thromboplast Time 68.5 Seconds (24.1-36.2)
[2019-01-26 06:17] LABS: Anion Gap 6 (5-15); BUN 17 mg/dL (7-18); Chloride 103 mmol/L (98-107); Creatinine, Serum 1.21 mg/dL (0.70-1.30); EST Glomerular Filtration Rate 62 mL/min (>60); Est Glom Filt Rate - Afr Amer 75 mL/min (>60); Estimated Creatinine Clearance 51.95 ml/min; Glucose 128 mg/dL (74-106); Potassium 3.6 mmol/L (3.5-5.1); Sodium Level 139 mmol/L (136-145)
--- NOTE | 2019-01-26 08:37 | PCM.PN.CARD ---
Subjectve: The patient is awake and alert. He stated he had recurrent chest discomfort last night and earlier this morning for which she required additional nitroglycerin sublingual. He denied any acute shortness of breath or dyspnea. He has had no near syncope or syncope. Objective: Vital Signs Temp Pulse Resp BP Pulse Ox 98.4 F 85 18 171/82 H 94 01/26/19 03:15 01/26/19 08:23 01/26/19 03:15 01/26/19 08:23 01/26/19 03:15 Oxygen Delivery Method Room Air Weight: 251 lb 1.704 oz Body Mass Index (BMI) 36.0 Intake and Output for Last 24 Hours 01/24/19 01/25/19 01/26/19 23:59 23:59 23:59 Intake Total 1577.5 / 1577.5 1377.80 / 1377.80 245.13 / 245.13 Balance 1577.5 / 1577.5 1377.80 / 1377.80 245.13 / 245.13 General: Awake, Alert, Oriented x 3, Cooperative, No Acute Distress HEENT: Atraumatic, Normocephalic, PERRL, EOMI, Sclera Non Icteric Oral: Moist Mucosa Neck: Supple, Good ROM, No JVD Lungs: Clear to auscultation Cardiovascular: Regular Rhythm, Premature Ectopic Beats, Normal S1, Normal S2 Abdomen: Bowel Sounds Present, Soft, Non Tender Neurological: No Focal Motor or Sensory Deficit Psych/Mental Status: Appropriate 01/25/19 10:05: WBC 5.6, RBC 5.08, Hgb 16.5, Hct 49.6, MCV 97.6 H, MCH 32.5 H, MCHC 33.3, Plt Count 183, MPV 9.1 01/25/19 10:05: Sodium 139, Potassium 3.5, Chloride 102, Carbon Dioxide 34.0 H, Anion Gap 3 L, BUN 16, Creatinine 1.37 H, Est GFR (MDRD) Af Amer 65, Est GFR (MDRD) Non-Af 53 L, BUN/Creatinine Ratio 11.7, Glucose 183 H, Calcium 9.3 01/25/19 12:15: APTT 61.2 H 01/25/19 18:00: APTT 63.5 H 01/26/19 05:15: Sodium 139, Potassium 3.6, Chloride 103, Carbon Dioxide 30.0, Anion Gap 6, BUN 17, Creatinine 1.21, Est GFR (MDRD) Af Amer 75, Est GFR (MDRD) Non-Af 62, BUN/Creatinine Ratio 14.0, Glucose 128 H, Calcium 9.0 01/26/19 05:15: APTT 68.5 H Rhythm: Sinus rhythm; premature ectopic complexes EKG: Sinus rhythm; left bundle branch block pattern Stress Test: Stress Test Report Date: 01-20-19 Procedure: Pharmacologic stress nuclear imaging study Indications: Chest pain/angina pectoris; CAD; CABG Consent: Per the patient Procedure: The patient underwent pharmacologic (Regadenoson) evaluation with a peak heart rate of 79 beats per minute (55 %predicted maximal heart rate) and a peak blood pressure of 130/86 mmHg. The baseline ECG demonstrated sinus rhythm; left bundle branch block. The peak pharmacologic ECG demonstrated continued left bundle branch block pattern. There was a rare PVC pretest, during infusion, and recovery. The patient noted waxing and waning chest discomfort during infusion/recovery with spontaneous resolution in recovery. The examination was discontinued secondary to completion of protocol. Impression: 1. Pharmacologic (Regadenoson) evaluation 2. Peak pharmacologic ECG with continued left bundle branch block pattern. 3. There was a rare PVC pretest, during infusion, and recovery. 4. Nuclear images pending Myocardial perfusion imaging study: Technique: The patient was injected with 15.0 millicuries of technetium 99m Cardiolite and subsequently rest SPECT Cardiolite nuclear imaging was obtained in the horizontal long, vertical long, and short axis views. The patient underwent pharmacologic (Regadenoson) evaluation with a peak heart rate of 79 beats per minute (55 % percent predicted maximal heart rate) and a peak blood pressure of 130/86 mmHg. The patient was injected with 45.0 millicuries of technetium 99m Cardiolite and subsequently stress SPECT Cardiolite nuclear imaging was obtained in the horizontal long, vertical long, and short axis views. A gated Cardiolite study at peak stress was obtained. Interpretation: Rest and stress SPECT Cardiolite nuclear imaging status post realignment, normalization, and attenuation correction demonstrate at rest the appearance of an area of diminished tracer uptake in portions of the distal anterior/anterior apical segments which appears to improve following stress. Following stress there is notation of diminished myocardial perfusion/tracer uptake in portions of the basal to mid inferior septal, inferior, and inferolateral segments as well as the distal inferior lateral segments. There is diminished end systolic thickening and brightening in the aforementioned areas. The gated Cardiolite study demonstrates diminished myocardial thickening and inward wall motion in the aforementioned areas. The reported LVEF is 40 %. Impression: 1. Rest and stress SPECT cardiac nuclear imaging demonstrate myocardial perfusion changes at rest which appear to improve following stress potentially compatible shifting soft tissue attenuation/artifact, however, post stress myocardial perfusion changes demonstrate areas of diminished myocardial perfusion/tracer uptake in portions of the basal to mid inferior septal, inferior, and inferolateral segments as well as the distal inferolateral segments which appear to improve at rest thus appearing compatible with stress-induced myocardial ischemia. 2. The gated Cardiolite study reports an LVEF of 40 %. Cardiac Cath: 04-29-17 CONCLUSIONS Elevated Left Ventricular End Diastolic Pressure Segmented LV systolic dysfunction- Mild LVEF: by LV gram 55 % [place] Multivessel CAD CASPER to LAD: patent SVG to DX1 and sequential portion to DX2: patent SVG to OM1: patent SVG to RCA: Occluded (proximal) Collateral Flow: Right to Right and Left to Right: to the RPDA RECOMMENDATIONS Risk factor modification Medical therapy DESCRIPTION OF PROCEDURE The patient arrived to the procedure lab. The risks and benefits of the procedure as well as a full description of our services here and current unavailability of surgical backup were fully explained to the patient and/or their significant other prior to the catheterization. The Timeout was completed, verifying the correct patient and procedure. The patient's procedural site was prepped and draped in the usual fashion. Local anesthetic was given subcutaneously to right groin region with Lidocaine 2%. Using a modified Seldinger technique, arterial access was obtained via the right femoral artery, a 4Fr sheath was inserted Left Coronary Artery selective angiography was performed in multiple views using a 4 Fr. JL5 catheter. Right Coronary Artery selective angiography was then performed in multiple views using a 4 Fr. 3DRC catheter. Saphenous Vein graft to the RCA selective angiography was performed in multiple views using a 4 Fr. 3DRC catheter. Saphenous Vein graft to the DIAG selective angiography was performed in multiple views using a 4 Fr. 3DRC catheter. Saphenous Vein graft to the Circumflex selective angiography was performed in multiple views using a 4 Fr. LCB catheter. Left internal mammary artery graft to the LAD selective angiography was performed in multiple views using a 4 Fr. JR4 catheter. Left Ventriculography was performed in MONK projection using a 4 Fr. Pigtail catheter. LV to AO pullback pressures were then recorded. Aortic arch selective angiography was then performed in single view.The arterial sheath was pulled and manual compression applied until hemostasis is achieved. CORONARY ANGIOGRAPHY DOMINANCE: Right Dominant LEFT HEART ASSESSMENT Left Ventricular Ejection Fraction: by LV Gram 55 % Inferior Basal Hypokinesis Elevated Left Ventricular End Diastolic Pressure LVEDP: 21 mmHg LEFT MAIN: Distal: 95 % Stenosis LEFT ANTERIOR DECENDING ARTERY: PROX LAD: is occluded CIRCUMFLEX ARTERY: MID CIRC: is occluded RIGHT CORONARY ARTERY: Severe calcification Diffuse: Eccentric: 75 % Stenosis DISTAL RCA: is occluded GRAFTS: CASPER graft to the Mid LAD is patent with no angiographically significant appearing disease distal to the graft attachment Saphenous Vein graft to the 1st Diagonal is patent with sequential portion to 2nd Diagonal being patent with no angiographically significant appearing disease distal the SVG graft attachements Saphenous Vein graft to the 2nd Diagonal is patent from a sequential portion from the SVG graft to the 1st Diagonal with no angiographically significant appearing disease distal to the SVG graft attachement Saphenous Vein graft to the 1st OM is patent with no angiographically significant appearing disease distal to the graft attachment Saphenous Vein graft to the RCA is totally occluded (proximally) COLLATERAL FLOW: Collateral flow from Right to Right: Bridging Right to Right Collateral Flow to the RPDA - which fills late, partially, and faintly Collateral flow from Left to Right: Left to Right Collateral Flow to the RPDA which fills late, faintly, and partially VALVE FINDINGS: Normal Aortic Valve function Normal Mitral Valve function AORTIC ROOT: Angiographically normal Medical Necessity - Tobacco Use Smoking Status: Never smoker Assessment/Plan 1. Non-ST segment elevation MD The patient presents with symptoms concerning for unstable angina pectoris and subsequent objective findings with respect to cardiac enzyme levels compatible with a non-ST segment elevation MD. At the present time he will continue medical management. Based upon his concerns of ongoing chest discomfort he will be placed on IV nitroglycerin. He will continue other medications as deemed appropriate. He will be scheduled for upcoming diagnostic cardiac catheterization to reassess his coronary/graft anatomy. Depending upon the findings he may need further consideration for percutaneous revascularization therapy. 2. CAD status post CABG He does have a history of underlying CAD and previous CABG. His last invasive evaluation is as noted above. He is recently undergone further evaluation based on ongoing chest discomfort with an exercise tolerance test/imaging study. Based upon the findings he did have a suggestion of myocardial ischemia. It is unclear at the moment whether this is related to his previously occluded RCA graft versus progression of coronary or graft disease in other distributions. Based upon his ongoing issues with respect to his symptoms and his objective findings he will undergo further evaluation and care as described above. 3. Hyperlipidemia He will continue risk factor evaluation and care as deemed appropriate. 4. Hypertension His blood pressure will be followed. His medicines will be adjusted as deemed appropriate. Comment: The patient's case was discussed and reviewed with the patient and his spouse. The cardiac catheterization procedure with respect to risks and benefits have been discussed. The patient is in agreement with the aforementioned evaluation and care plan. Thank you for allowing me to participate in the care of your patient. This note was generated using a voice recognition system and there may be incorrect words, spelling or punctuation that were not noted when reviewing the office note prior to saving.
[2019-01-26] MEDS: Nitroglycerin Infusion 250 ML 3 MG CONT INF (09:06)
[2019-01-26] MEDS: Metoprolol(XL)Succ 100 MG Tablet PO (10:41)
[2019-01-26] MEDS: Losartan Potassium 100 MG Tablet PO (10:41)
[2019-01-26] MEDS: Pantoprazole Sodium 20 MG Tablet PO (10:41)
[2019-01-26] MEDS: hydroCHLOROthiazide 25 MG Tablet PO (10:41)
[2019-01-26] MEDS: Ranolazine 500 MG Tablet 1000 MG PO ×2 (10:42→21:06)
--- NOTE | 2019-01-26 12:00 | NURSING ---
Pt to phlebotomy lab assistant with this RN.
[2019-01-26] MEDS: 0.9% Saline Lock 10 ML Syringe IV (12:03)
--- NOTE | 2019-01-26 13:14 | PN_ITS ---
<Brandyn Lepe - Last Filed: 01/26/19 13:14> Patient Problems: Active and Suspected Problems (Last Reviewed 01/24/19 @ 07:22 by Hemant Hernandez MD) NSTEMI (non-ST elevated myocardial infarction) (Acute) Subjective: No CP at time of examination. Did continue to have some chest pain this AM. He has tolerated the nitro drip well. This was a midsternal burning with radiation to both arms, sometimes SOB. He has had this ongoing intermittently since his last cath at which time his meds were adjusted. He says the med changes helped somewhat. At the last cath he had an occluded bypass. He will go for a heart cath today. - Physical Exam Vitals/I&O's: Vital Signs Temp Pulse Resp BP Pulse Ox 98.4 F 76 16 142/77 H 95 01/26/19 12:00 01/26/19 12:00 01/26/19 12:00 01/26/19 12:00 01/26/19 12:43 Oxygen Delivery Method Room Air Weight: 251 lb 1.704 oz Body Mass Index (BMI) 36.0 Intake and Output for Last 24 Hours 01/24/19 01/25/19 01/26/19 23:59 23:59 23:59 Intake Total 1577.5 / 1577.5 1377.80 / 1377.80 305.53 / 305.53 Balance 1577.5 / 1577.5 1377.80 / 1377.80 305.53 / 305.53 General: Alert, Oriented x3, Cooperative HEENT: Atraumatic, PERRLA, EOMI, Normocephalic Neck: Supple, No JVD, Negative Carotid Bruits Lungs: Clear to auscultation, Normal air movement Cardiovascular: Regular rate, No murmurs Abdomen: Bowel Sounds Present, Soft, Non Tender Extremities: No edema, Capillary Refill Less than 3 Seconds Skin: No rashes, No breakdown Musculoskeletal: No Tenderness to Palpation of Joints or Extremities Neurological: Cranial nerves II-XII grossly intact Psych/Mental Status: Normal Affect, Appropriate, Alert and oriented to time, place, person, mood and affect Laboratory Results 01/25/19 18:00: APTT 63.5 H 01/26/19 05:15: Sodium 139, Potassium 3.6, Chloride 103, Carbon Dioxide 30.0, Anion Gap 6, BUN 17, Creatinine 1.21, Estim Creat Clear Calc 51.95, Est GFR (MDRD) Af Amer 75, Est GFR (MDRD) Non-Af 62, BUN/Creatinine Ratio 14.0, Glucose 128 H, Calcium 9.0 01/26/19 05:15: APTT 68.5 H Current Medications Acetaminophen (Tylenol) 650 mg PO Q6H PRN PRN PRN Reason: Pain Score 1-3/Temp > 100.7 F Aspirin (Ecotrin) 81 mg PO DAILYCM [facility] Last Admin: 01/26/19 05:29 Dose: 81 mg Documented by: Atorvastatin Calcium (Lipitor) 40 mg PO DAILY@2200 [facility] Last Admin: 01/25/19 21:19 Dose: 40 mg Documented by: Clopidogrel Bisulfate (Plavix) 75 mg PO DAILY [facility] Last Admin: 01/26/19 05:29 Dose: 75 mg Documented by: Dextrose (D50w Syringe) 0 gm IV X1 PRN; Protocol PRN Reason: Hypoglycemia Glucagon () 1 mg IM .X1 PRN PRN Reason: Hypoglycemia Heparin Sodium (Porcine) (Heparin Na) 0 unit IV UD PRN; Protocol Hydrochlorothiazide (Hctz) 25 mg PO DAILY [facility] Last Admin: 01/26/19 10:41 Dose: 25 mg Documented by: Heparin Sodium/Dextrose () 25,000 units in 250 mls @ 15 mls/hr IV .[id number] [facility]; Protocol Last Titration: 01/26/19 08:15 Dose: 0 mls/hr Documented by: Nitroglycerin/Dextrose () 250 mls @ 3 mls/hr CONT INF .[id number] [facility]; Protocol Last Titration: 01/26/19 12:14 Dose: 5 mcg/min, 3 mls/hr Documented by: Sodium Chloride () 1,000 mls @ 15 mls/hr IV .Q48H [facility] Last Admin: 01/26/19 12:15 Dose: Not Given Documented by: Losartan Potassium (Cozaar) 100 mg PO DAILY [facility] Last Admin: 01/26/19 10:41 Dose: 100 mg Documented by: Metoprolol Succinate (Toprol Xl (Beta Katarina)) 100 mg PO DAILY [facility] Last Admin: 01/26/19 10:41 Dose: 100 mg Documented by: Nitroglycerin (Nitrostat) 0.4 mg SUBLINGUAL Q5M PRN PRN Reason: CARDIAC/CHEST PAIN Last Admin: 01/26/19 08:23 Dose: 1 tab Documented by: Ondansetron HCl (Zofran) 4 mg IV Q8H PRN PRN PRN Reason: NAUSEA/VOMITING Pantoprazole Sodium (Protonix) 20 mg PO DAILY [facility] Last Admin: 01/26/19 10:41 Dose: 20 mg Documented by: Ranolazine (Ranexa) 1,000 mg PO BID [facility] Last Admin: 01/26/19 10:42 Dose: 1,000 mg Documented by: Sodium Chloride () 5 - 15 ml IV UD PRN PRN Reason: SALINE FLUSH Medical Necessity - Tobacco Use Smoking Status: Never smoker Assessment/Plan All Active Problems (Last Reviewed 01/24/19 @ 07:22 by Hemant Hernandez MD) NSTEMI (non-ST elevated myocardial infarction) (Acute) Abnormal stress test (Acute) Chest pain, unspecified (Acute) 1. NSTEMI, hx CAD, prior CABG - cath today per Dr. Benoit. On ranolazine, isosorbide, aspirin, plavix statin, metoprolol, losartan. max troponin 0.113. 2. HTN - as above. Mildly elevated. 3. HLD - statin. 4. Obesity - dietary eval. DC planning: pending cath results. This patient was seen by Brandyn Lepe PA-C under the supervision of Doctor Ame. <Jeremie Mccloud - Last Filed: 01/26/19 14:55> - Physical Exam Vitals/I&O's: Vital Signs Temp Pulse Resp BP Pulse Ox 98.4 F 79 17 136/71 H 95 01/26/19 12:00 01/26/19 14:30 01/26/19 14:30 01/26/19 14:30 01/26/19 14:30 Oxygen Delivery Method Room Air Weight: 113.9 kg Body Mass Index (BMI) 36.0 Intake and Output for Last 24 Hours 01/24/19 01/25/19 01/26/19 23:59 23:59 23:59 Intake Total 1577.5 / 1577.5 1377.80 / 1377.80 311.48 / 311.48 Balance 1577.5 / 1577.5 1377.80 / 1377.80 311.48 / 311.48 Laboratory Results 01/25/19 18:00: APTT 63.5 H 01/26/19 05:15: Sodium 139, Potassium 3.6, Chloride 103, Carbon Dioxide 30.0, Anion Gap 6, BUN 17, Creatinine 1.21, Estim Creat Clear Calc 51.95, Est GFR (MDRD) Af Amer 75, Est GFR (MDRD) Non-Af 62, BUN/Creatinine Ratio 14.0, Glucose 128 H, Calcium 9.0 01/26/19 05:15: APTT 68.5 H 01/26/19 14:17: Sodium Pending, Potassium Pending, Chloride Pending, Carbon Dioxide Pending, Anion Gap Pending, BUN Pending, Creatinine Pending, Est GFR (MDRD) Af Amer Pending, Est GFR (MDRD) Non-Af Pending, BUN/Creatinine Ratio Pending, Glucose Pending, Calcium Pending Current Medications Acetaminophen (Tylenol) 650 mg PO Q6H PRN PRN PRN Reason: Pain Score 1-3/Temp > 100.7 F [facility]) [facility] Last Admin: 01/26/19 05:29 Dose: 81 mg Documented by: Atorvastatin Calcium (Lipitor) 80 mg PO QHS [facility] Clopidogrel Bisulfate (Plavix) 75 mg PO DAILY [facility] Last Admin: 01/26/19 05:29 Dose: 75 mg Documented by: Dextrose (D50w Syringe) 0 gm IV X1 PRN; Protocol PRN Reason: Hypoglycemia Glucagon () 1 mg IM .X1 PRN PRN Reason: Hypoglycemia Hydrochlorothiazide (Hctz) 25 mg PO DAILY [facility] Last Admin: 01/26/19 10:41 Dose: 25 mg Documented by: Nitroglycerin/Dextrose () 250 mls @ 3 mls/hr CONT INF .[id number] [facility]; Protocol Last Titration: 01/26/19 14:13 Dose: 5 mcg/min, 3 mls/hr Documented by: Sodium Chloride () 1,000 mls @ 15 mls/hr IV .Q48H [facility] Last Admin: 01/26/19 12:15 Dose: Not Given Documented by: Sodium Chloride () 1,000 mls @ 75 mls/hr IV .[id number] [facility] Stop: 01/26/19 17:39 Labetalol HCl (Trandate) 5 mg IV X1 PRN PRN Reason: SBP > 160 prior to sheath pull Stop: 01/28/19 13:39 Losartan Potassium (Cozaar) 100 mg PO DAILY [facility] Last Admin: 01/26/19 10:41 Dose: 100 mg Documented by: Metoprolol Succinate (Toprol Xl (Beta Katarina)) 100 mg PO DAILY [facility] Last Admin: 01/26/19 10:41 Dose: 100 mg Documented by: Nitroglycerin (Nitrostat) 0.4 mg SUBLINGUAL Q5M PRN PRN Reason: CARDIAC/CHEST PAIN Last Admin: 01/26/19 08:23 Dose: 1 tab Documented by: Ondansetron HCl (Zofran) 4 mg IV Q8H PRN PRN PRN Reason: NAUSEA/VOMITING Pantoprazole Sodium (Protonix) 20 mg PO DAILY [facility] Last Admin: 01/26/19 10:41 Dose: 20 mg Documented by: Ranolazine (Ranexa) 1,000 mg PO BID [facility] Last Admin: 01/26/19 10:42 Dose: 1,000 mg Documented by: Sodium Chloride () 5 - 15 ml IV UD PRN PRN Reason: SALINE FLUSH Assessment/Plan This patient was seen in conjunction with Brandyn Lepe PA-C . I have independently interviewed and examined the patient and reviewed pertinent historical, laboratory, and other data. Please refer to Branydn Lepe PA-C note for details of this patient's presentation, findings, and recommendations. I have reviewed Brandyn Lepe PA-C note and concur with documented findings. In brief, patient 78-year-old gentleman with past medical history single for CAD status post CABG who presented with chest pain and assessment of acute on STEMI made patient admitted to a monitored bed treated per protocol plan for patient undergo left heart catheterization. In He did have persistent chest pain resulting in initiation of nitroglycerin drip Physical Examination: GENERAL: cooperative HEENT: Atraumatic; EYES; Anicteric, Normal Conjunctiva NECK; supple, normal thyroid, RESPIRATORY: Diminished to auscultation CARDIOVASCULAR: Regular S1 S2, GI: soft, non-tender, normoactive bowel sounds, : No Renal angle tenderness; EXTREMITIES: No edema, no clubbing, MUSCULOSKELETAL: No Joint Tenderness; NEURO: Awake; no lateralizing signs. SKIN: No Rash PSYCH; Normal affect Assessment: 1. Acute NSTEMI 2. CAD with previous CABG 3. Essential hypertension 4. Dyslipidemia 5. Obesity with BMI of 36 Recommendations: 1. I have discussed the results of my overview and impressions with the patient 2. Options for management were reviewed Code Visit Inpatient E&M: 40559 Subs Hosp L3
[2019-01-26] MEDS: 0.9% Normal Saline 1,000 ML 75 ML IV (14:00)
[2019-01-26 15:01] LABS: Anion Gap 7 (5-15); BUN 15 mg/dL (7-18); BUN/Creat Ratio 12.9 RATIO (10-20); Calcium,Total 9.1 mg/dL (8.5-10.1); Chloride 102 mmol/L (98-107); Creatinine, Serum 1.16 mg/dL (0.70-1.30); EST Glomerular Filtration Rate 65 mL/min (>60); Est Glom Filt Rate - Afr Amer 78 mL/min (>60); Estimated Creatinine Clearance 54.19 ml/min; Glucose 114 mg/dL (74-106); Potassium 3.8 mmol/L (3.5-5.1); Sodium Level 137 mmol/L (136-145)
[2019-01-26] MEDS: Isosorbide Mononitrate 60 MG Tablet PO (18:40)
--- NOTE | 2019-01-26 18:53 | CL.D_ITS ---
Patient Name: AKIRA PIZARRO Study Date: 01/26/2019 Performing: Zander Benoit MD Ht: 70.08 inches 178 cm : 1940 Wt: 251.33 lbs 114 kg Age: 78 Gender: male BSA: 2.3 PROCEDURE(S) PERFORMED IF22-MVZ/COR/LV/CABG CLINICAL PROFILE AND INDICATIONS Indications: Worsening Angina Heart Failure: None Stress/Imaging Stress/Image Study Performed: No Angina Classification Anginal Classification w/in 2 Weeks: CCS IV CAD Presentations: Non-STEMI. CONCLUSIONS Normal Left Ventricular End Diastolic Pressure Segmented LV systolic dysfunction- Mild LVEF: by LV gram 40 % [place] Multivessel CAD CASPER to LAD: patent SVG to DX1 and sequential portion to DX2: patent SVG to OM1: occulded SVG to RCA: occluded Left to Right and Left to Left and Right to Right collateral flow RECOMMENDATIONS Risk factor modification Medical therapy Consideration for: ECP therapy Consideration for tertiary care center evaluation for: IMPREGNATOR HELPER (chronic total occlusion) evaluation / the rapy DESCRIPTION OF PROCEDURE The patient arrived to the procedure lab. The risks and benefits of the procedure as well as a full d escription of our services here and current unavailability of surgical backup were fully explained to the patient and/or their significant other prior to the catheterization. The Timeout was completed, verifying the correct patient and procedure. The patient's procedural site was prepped and draped in the usual fashion. Local anesthetic was given subcutaneously to right groin region with Lidocaine 2%. Using a modified Seldinger technique, arterial access was obtained via the right femoral artery, a 4 Fr sheath was inserted Left Coronary Artery selective angiography was performed in multiple views us ing a 4 Fr. JL5 catheter. Right Coronary Artery selective angiography was then performed in multiple views using a 4 Fr. 3DRC catheter. Saphenous Vein graft to the DIAG 1 selective angiography was perfo rmed in multiple views using a 4 Fr. LCB catheter. Left internal mammary artery graft to the LAD selective angiography was performed in multiple views using a 4 Fr. JR4 catheter. Left recruitment internship al mammary artery graft to the LAD selective angiography was performed in multiple views using a 4 Fr . IM catheter. Left Ventriculography was performed in MONK projection using a 4 Fr. Pigtail catheter. LV to AO pullback pressures were then recorded.The arterial sheath was pulled and manual compression applied until hemostasis is achieved. CORONARY ANGIOGRAPHY DOMINANCE: Right Dominant LEFT HEART ASSESSMENT Left Ventricular Ejection Fraction: by LV Gram 40 % Inferior Basal Hypokinesis - Severe. Inferior Mid Hypokinesis. Inferior Apical Hypokinesis Normal Left Ventricular End Diastolic Pressure LVEDP: 10 mmHg LEFT MAIN: distal: 95 % Stenosis LEFT ANTERIOR DESCENDING ARTERY: PROX LAD: Moderate calcification MID LAD: s/p SP: 100 % Stenosis, and distal vessel filling from CASPER flow with no angiographically si gnificant disease distal to the CASPER anastomsis CIRCUMFLEX ARTERY: OSTIAL CIRC: is occluded PROX CIRC: Moderate calcification RIGHT CORONARY ARTERY: Severe calcification diffuse, eccentric, hazy, 85 % Stenosis DISTAL RCA: is occluded with portions of the RPDA and RPL system filling late, faintly, and partially from bridging collaterals GRAFTS: CASPER graft to the Mid LAD is patent Saphenous Vein graft to the 1st Diagonal is patent with a sequential portion to the 2nd Diagonal bran ch being patent with no angiographically significant appearing disease distal to the graft attachment s Saphenous Vein graft to the 1st OM is totally occluded Saphenous Vein graft to the RCA is totally occluded COLLATERAL FLOW: Collateral flow from Left to Right Collateral flow from Left to Left Collateral flow from Right to Right AORTIC ROOT: Angiographically normal COMPLICATIONS No Complications PROCEDURE MEDICATIONS Versed 1 mg IV Versed 1 mg IV Oxygen: 2 L/min via nasal cannula Nitro drip running at 5mcg/min ^FreeText^ 01/26/2019 12:22:31 SUMMARY OF HEMODYNAMIC DATA Time AIR REST ECG 12:16:13 AO 109/73 (92) SA 12:36:00 LV 124/1, 12 13:16:38 LV 122/-1, 10 13:16:45 LV 135/8, 32 13:17:35 LV 128/3, 21 13:17:41 LVp 129/0, 20 13:17:46 AOp 135/55 (77) 13:17:51 Signed By Zander Benoit MD On 01/26/2019 18:52:53 Zander Benoit MD
[2019-01-26] MEDS: Atorvastatin Calcium 80 MG Tablet PO (21:06)
[2019-01-27] VITALS (7 sets, daily range): BP systolic 109–133; BP diastolic 60–79; PULSE 54–66; RESP 16–18; TEMP 36.5–37.1; O2SAT 94–95
[2019-01-27 06:13] LABS: Hematocrit 47.7 % (40-54); Hemoglobin 15.9 g/dL (13.0-16.5)
[2019-01-27 06:39] LABS: Anion Gap 3 (5-15); BUN 19 mg/dL (7-18); BUN/Creat Ratio 15.4 RATIO (10-20); Chloride 104 mmol/L (98-107); Creatinine, Serum 1.23 mg/dL (0.70-1.30); EST Glomerular Filtration Rate 60 mL/min (>60); Est Glom Filt Rate - Afr Amer 73 mL/min (>60); Estimated Creatinine Clearance 51.11 ml/min; Glucose 123 mg/dL (74-106); Potassium 3.9 mmol/L (3.5-5.1); Sodium Level 137 mmol/L (136-145)
--- NOTE | 2019-01-27 09:15 | PN.CARD_ITS ---
Subjectve: The patient is awake and alert. He states he rested comfortably last night. He had no recurrent chest discomfort. He had no other acute concerns. Objective: Vital Signs Temp Pulse Resp BP Pulse Ox 98.2 F 55 L 18 109/79 95 01/27/19 03:00 01/27/19 07:53 01/27/19 03:00 01/27/19 03:00 01/27/19 03:00 Oxygen Delivery Method Room Air Weight: 251 lb 1.704 oz Body Mass Index (BMI) 36.0 Intake and Output for Last 24 Hours 01/25/19 01/26/19 01/27/19 23:59 23:59 23:59 Intake Total 1377.80 / 1377.80 862.83 / 862.83 Balance 1377.80 / 1377.80 862.83 / 862.83 General: Awake, Alert, Oriented x 3, Cooperative, No Acute Distress HEENT: Atraumatic, Normocephalic, PERRL, EOMI, Sclera Non Icteric Oral: Moist Mucosa Neck: Supple, Good ROM, No JVD Lungs: Clear to auscultation Cardiovascular: Regular Rhythm, Premature Ectopic Beats, Normal S1, Normal S2 Vascular: Normal Femoral Pulses Abdomen: Bowel Sounds Present, Soft, Non Tender Extremities: No edema Neurological: No Focal Motor or Sensory Deficit Psych/Mental Status: Appropriate 01/26/19 14:17: Sodium 137, Potassium 3.8, Chloride 102, Carbon Dioxide 28.0, Anion Gap 7, BUN 15, Creatinine 1.16, Est GFR (MDRD) Af Amer 78, Est GFR (MDRD) Non-Af 65, BUN/Creatinine Ratio 12.9, Glucose 114 H, Calcium 9.1 01/26/19 23:01: Troponin I 0.065 H 01/27/19 05:38: Sodium 137, Potassium 3.9, Chloride 104, Carbon Dioxide 30.0, Anion Gap 3 L, BUN 19 H, Creatinine 1.23, Est GFR (MDRD) Af Amer 73, Est GFR (MDRD) Non-Af 60, BUN/Creatinine Ratio 15.4, Glucose 123 H, Calcium 9.0 01/27/19 05:38: Hgb 15.9, Hct 47.7 Rhythm: Sinus rhythm; premature ventricular complexes Cardiac Cath: 10-21-19 CONCLUSIONS Normal Left Ventricular End Diastolic Pressure Segmented LV systolic dysfunction- Mild LVEF: by LV gram 40 % [place] Multivessel CAD CASPER to LAD: patent SVG to DX1 and sequential portion to DX2: patent SVG to OM1: occulded SVG to RCA: occluded Left to Right and Left to Left and Right to Right collateral flow RECOMMENDATIONS Risk factor modification Medical therapy Consideration for: ECP therapy Consideration for tertiary care center evaluation for: PROCESSOR SOLID PROPELLANT (chronic total occlusion) evaluation / therapy Medical Necessity - Tobacco Use Smoking Status: Never smoker Assessment/Plan 1. Non-ST segment elevation WI The patient presents with symptoms concerning for unstable angina pectoris and subsequent objective findings with respect to cardiac enzyme levels compatible with a non-ST segment elevation WI. At the present time he will continue medical management. This will include adjustment of his medications based upon his clinical course and objective findings. He will also be considered for further evaluation for EECP therapy. His cardiac catheterization films will be forwarded to the [facility] interventional cardiology group for consideration for chronic total occlusion therapy. 2. CAD status post CABG He does have a history of underlying CAD and previous CABG. As noted above, at the present time, he will continue medical management. This will include his aspirin, beta-oli therapy (decreased dose secondary to concerns of bradycardia dysrhythmias), diuretics, afterload reducing agents, lipid-lowering agents, additional antianginal agents at these increased dose of Ranexa), and adjustment of his antiplatelet/anticoagulant therapy with discontinuation of his clopidogrel/Plavix and addition of Xarelto at 2.5 mg twice daily. He has been referred for EECP therapy. The EECP team did discuss EECP with him today. He will consider his options. His cardiac catheterization films will be forwarded to the [facility] interventional cardiology group for consideration for chronic total occlusion therapy. 3. Hyperlipidemia He will continue risk factor evaluation and care as deemed appropriate. 4. Hypertension His blood pressure will be followed. His medicines will be adjusted as deemed appropriate. Comment: The patient's case was discussed and reviewed with the patient at length yesterday and today. He was agreeable to the aforementioned evaluation care plan. Otherwise, at the moment, there are no immediate plans for additional inpatient cardiovascular evaluation/procedures. The patient will also be established through the outpatient office for continued outpatient cardiovascular follow-up. Thank you for allowing me to participate in the care of your patient. This note was generated using a voice recognition system and there may be incorrect words, spelling or punctuation that were not noted when reviewing the office note prior to saving.
[2019-01-27] MEDS: hydroCHLOROthiazide 25 MG Tablet PO (09:20)
[2019-01-27] MEDS: Ranolazine 500 MG Tablet 1000 MG PO (09:20)
[2019-01-27] MEDS: Aspirin E.C. 81 MG Tablet PO (09:20)
[2019-01-27] MEDS: Pantoprazole Sodium 20 MG Tablet PO (09:21)
[2019-01-27] MEDS: Losartan Potassium 100 MG Tablet PO (09:21)
[2019-01-27] MEDS: Isosorbide Mononitrate 60 MG Tablet PO (09:21)
[2019-01-27] MEDS: Metoprolol(XL)Succ 50 MG Tablet PO (10:08)
--- NOTE | 2019-01-27 11:12 | PCM.DC ---
- Discharge Diagnoses Current Active Problems: Current Active and Chronic Problems (Last Updated 01/27/19 @ 09:23 by Andie Aguilar) NSTEMI (non-ST elevated myocardial infarction) (Acute ~01/24/19) You will use the following diet at home:: Cardiac Your food should be the consistency of: Regular Your liquids should be the consistency of: Regular/Thin Discharge Activity: Return to Normal Activity, - - physical activity per cardiology restrictions Allergies/Adverse Reactions: Allergies No Known Allergies Allergy (Verified 01/24/19 03:03) Medications to take at Discharge aspirin 81 mg tablet,delayed release 81 mg PO QDAY 03/25/17 losartan 100 mg-hydrochlorothiazide 25 mg tablet 1 tab PO QDAY 03/25/17 nitroglycerin 0.4 mg sublingual tablet 0.4 mg SUBLINGUAL Q5M PRN #25 tab 10/15/18 isosorbide mononitrate ER 60 mg tablet,extended release 24 hr 60 mg PO BID #60 tab 12/29/18 Atorvastatin Calcium [Lipitor] 80 mg PO QHS #30 tab 01/27/19 Metoprolol(XL)Succ [Toprol Xl (Beta Katarina)] 50 mg PO DAILY #30 tab 01/27/19 Ranolazine [Ranexa] 1,000 mg PO BID #120 tab 01/27/19 Rivaroxaban [Xarelto] 2.5 mg PO BIDCM #60 tab 01/27/19 The following prescriptions were given: Atorvastatin Calcium [Lipitor] 80 mg PO QHS #30 tab Transmission Status: [facility] Ranolazine [Ranexa] 1,000 mg PO BID #120 tab Transmission Status: Pending to [facility] Metoprolol(XL)Succ [Toprol Xl (Beta Katarina)] 50 mg PO DAILY #30 tab Transmission Status: Pending to [facility] Rivaroxaban [Xarelto] 2.5 mg PO BIDCM #60 tab Transmission Status: Pending to [facility] Primary Care Physician: Matias Lopez [Primary Care Provider] - Please follow up with your Primary Care Physician in: 1-2 weeks Test Results: Test results from this visit will be discussed in further detail at your follow-up appointment, if applicable. Please Follow Up With: Zander Benoit MD When: as directed Proposed Discharge Date: 01/27/19
--- NOTE | 2019-01-27 11:30 | CASEMGMT ---
Case Management Progress Note: Called patient preferred pharmacy [facility] and s/w Aaron, states patient copay for Xarelto is $47/month. Xarelto Coupon Card provided to patient and explained coupon card and copay cost of Xarelto with patient. Patient agreeable to plan for Xarelto and denies any issues or concerns at this time. Rola Murdock RNCM
[2019-01-27] MEDS: RIVAROXABAN 2.5 MG TABLET PO (11:54)
--- NOTE | 2019-01-27 12:52 | PHA.DC.MC ---
Pharmacy Service has performed discharge medication reconciliation and counseling for this patient. 1. RIVAROXABAN 2.5MG PO BID The patient's discharge medication list was reviewed for discrepancies and discrepancies were resolved. Home Medications aspirin 81 mg tablet,delayed release 81 mg PO QDAY 03/25/17 losartan 100 mg-hydrochlorothiazide 25 mg tablet 1 tab PO QDAY 03/25/17 nitroglycerin 0.4 mg sublingual tablet 0.4 mg SUBLINGUAL Q5M PRN #25 tab 10/15/18 isosorbide mononitrate ER 60 mg tablet,extended release 24 hr 60 mg PO BID #60 tab 12/29/18 Atorvastatin Calcium [Lipitor] 80 mg PO QHS #30 tab 01/27/19 Metoprolol(XL)Succ [Toprol Xl (Beta Katarina)] 50 mg PO DAILY #30 tab 01/27/19 Ranolazine [Ranexa] 1,000 mg PO BID #120 tab 01/27/19 Rivaroxaban [Xarelto] 2.5 mg PO BIDCM #60 tab 01/27/19 The patient was counseled on the following discharge medications and changes in medications for homegoing were reviewed. The Reason for Use, instructions for use, and potential side effects were reviewed for all new medications. The patient's questions regarding all of their medications were answered. The patient was able to verbally demonstrate an understanding of their discharge medications.
--- NOTE | 2019-01-27 14:28 | PCM.DC.SUM ---
<Brandyn Lepe - Last Filed: 01/27/19 14:28> Discharge Date and Diagnosis Date of Admission: 01/24/19 Date of Discharge: 01/27/19 - Primary Discharge Diagnosis NSTEMI CAD occluded bypass grafts HTN HLD Obesity - Secondary Discharge Diagnosis Chronic Problems (Last Updated 01/27/19 @ 09:23 by Andie Aguilar) Presence of aortocoronary bypass graft (Chronic ~09/2000) CABG with CASPER to LAD, SVG to diagonal 1 and sequential to diagonal 2, SVG to OM1, and SVG to RCA 09/2000 Essential hypertension (Chronic) Atherosclerosis of coronary artery bypass graft without angina pectoris (Chronic) LEFT MAIN: distal: 95 % Stenosis; LEFT ANTERIOR DESCENDING ARTERY: PROX LAD: Moderate calcification MID LAD: s/p SP: 100 % Stenosis, and distal vessel filling from CASPER flow with no angiographically significant disease distal to the CASPER anastomsis; CIRCUMFLEX ARTERY: OSTIAL CIRC: is occluded PROX CIRC: Moderate calcification; RIGHT CORONARY ARTERY: Severe calcification diffuse, eccentric, hazy, 85 % Stenosis DISTAL RCA: is occluded with portions of the RPDA and RPL system filling late, faintly, and partially from bridging collaterals; GRAFTS: CASPER graft to the Mid LAD is patent; Saphenous Vein graft to the 1st Diagonal is patent with a sequential portion to the 2nd Diagonal branch being patent with no angiographically significant appearing disease distal to the graft attachments; Saphenous Vein graft to the 1st OM is totally occluded; Saphenous Vein graft to the RCA is totally occluded; COLLATERAL FLOW: Collateral flow from Left to Right, Collateral flow from Left to Left, Collateral flow from Right to Right; AORTIC ROOT: Angiographically normal Per Cath 01/26/19 Hyperlipidemia (Chronic) Hospital Course and Treatment Imaging Results: RAD/Chest 1 View (Portable) IMPRESSION: 1. No acute cardiopulmonary disease. No significant interval change. 2. Bibasilar mild scarring. 3. Previous CABG. LEFT HEART CATH: CONCLUSIONS Normal Left Ventricular End Diastolic Pressure Segmented LV systolic dysfunction- Mild LVEF: by LV gram 40 % [place] Multivessel CAD CASPER to LAD: patent SVG to DX1 and sequential portion to DX2: patent SVG to OM1: occulded SVG to RCA: occluded Left to Right and Left to Left and Right to Right collateral flow RECOMMENDATIONS Risk factor modification Medical therapy Consideration for: ECP therapy Consideration for tertiary care center evaluation for: SENIOR SALES EXECUTIVE (chronic total occlusion) evaluation / therapy Consults: Cardiology-Kaycee Operations: None Procedures: Cardiac catheterization Summary of Care Provided: Hospital course: The patient is a 78 year old M with past medical history of CAD with prior CABG x2, hypertension, hyperlipidemia, obesity who presented to the emergency room with complaints of chest pain. This was described as episodic, burning pain, with pain in both arms. He was taking nitro with some relief however his pain would return. He was scheduled for an outpatient catheterization due to an abnormal stress test. In the emergency room he had indeterminate troponin, EKG with left bundle branch, first-degree AV block, negative chest x-ray. He was admitted to the PCU and cardiology was consulted. Troponin was cycled and remained indeterminate. He was placed on a nitro drip which alleviated his chest pain. He was taken for a left heart catheterization by cardiology and was found to have occlusions of the SVG to OM1, SVG to RCA. He did have collateral flow noted. Cardiology recommended medication adjustments including as well as a referral as an outpatient for chronic total occlusion ECP therapy. Following his heart catheterization he had no further chest pain. He remained stable following day with his medication adjustments including lower dose beta-katarina, transition from Plavix to Xarelto, increased Ranexa, increased atorvastatin continuation of Imdur, baby aspirin, losartan and HCTZ. He was discharged home in stable condition. He will need to follow-up with his PCP in 1 to 2 weeks and follow-up with cardiology as directed. This patient was seen by Brandyn Lepe PA-C under the supervision of Doctor Mccloud. [] - Physical Exam Vitals/I&O's: Vital Signs Temp Pulse Resp BP Pulse Ox 97.7 F L 62 18 121/70 H 94 01/27/19 12:40 01/27/19 12:40 01/27/19 12:40 01/27/19 12:40 01/27/19 12:40 Oxygen Delivery Method Room Air Weight: 251 lb 1.704 oz Body Mass Index (BMI) 36.0 Intake and Output for Last 24 Hours 01/25/19 01/26/19 01/27/19 23:59 23:59 23:59 Intake Total 1377.80 / 1377.80 862.83 / 862.83 220 / 220 Balance 1377.80 / 1377.80 862.83 / 862.83 / 220 General: Alert, Oriented x3, Cooperative HEENT: Atraumatic, PERRLA, EOMI, Normocephalic Neck: Supple, No JVD, Negative Carotid Bruits Lungs: Clear to auscultation, Normal air movement Cardiovascular: Regular rate, No murmurs Abdomen: Bowel Sounds Present, Soft, Non Tender Extremities: No edema, Capillary Refill Less than 3 Seconds Skin: No rashes, No breakdown Musculoskeletal: No Tenderness to Palpation of Joints or Extremities Neurological: Cranial nerves II-XII grossly intact Psych/Mental Status: Normal Affect, Appropriate Laboratory Results 01/26/19 14:17: Sodium 137, Potassium 3.8, Chloride 102, Carbon Dioxide 28.0, Anion Gap 7, BUN 15, Creatinine 1.16, Estim Creat Clear Calc 54.19, Est GFR (MDRD) Af Amer 78, Est GFR (MDRD) Non-Af 65, BUN/Creatinine Ratio 12.9, Glucose 114 H, Calcium 9.1 01/26/19 23:01: Troponin I 0.065 H 01/27/19 05:38: Sodium 137, Potassium 3.9, Chloride 104, Carbon Dioxide 30.0, Anion Gap 3 L, BUN 19 H, Creatinine 1.23, Estim Creat Clear Calc 51.11, Est GFR (MDRD) Af Amer 73, Est GFR (MDRD) Non-Af 60, BUN/Creatinine Ratio 15.4, Glucose 123 H, Calcium 9.0 01/27/19 05:38: Hgb 15.9, Hct 47.7 Discharge Diet: Low fat/ Low Cholesterol, 2000 mg Sodium Diet Discharge Activity: Return to Normal Activity, - - physical activity per cardiology restrictions Home Medications: Medications to take at Discharge aspirin 81 mg tablet,delayed release 81 mg PO QDAY 03/25/17 losartan 100 mg-hydrochlorothiazide 25 mg tablet 1 tab PO QDAY 03/25/17 nitroglycerin 0.4 mg sublingual tablet 0.4 mg SUBLINGUAL Q5M PRN #25 tab 10/15/18 isosorbide mononitrate ER 60 mg tablet,extended release 24 hr 60 mg PO BID #60 tab 12/29/18 Atorvastatin Calcium [Lipitor] 80 mg PO QHS #30 tab 01/27/19 Metoprolol(XL)Succ [Toprol Xl (Beta Katarina)] 50 mg PO DAILY #30 tab 01/27/19 Ranolazine [Ranexa] 1,000 mg PO BID #120 tab 01/27/19 Rivaroxaban [Xarelto] 2.5 mg PO BIDCM #60 tab 01/27/19 Following Prescrptions Were Given to Patient: Atorvastatin Calcium [Lipitor] 80 mg PO QHS #30 tab Transmission Status: Received by [facility] Ranolazine [Ranexa] 1,000 mg PO BID #120 tab Transmission Status: Received by [facility] Metoprolol(XL)Succ [Toprol Xl (Beta Katarina)] 50 mg PO DAILY #30 tab Transmission Status: Received by [facility] Rivaroxaban [Xarelto] 2.5 mg PO BIDCM #60 tab Transmission Status: Received by [facility] Primary Care Physician: Matias Lopez [Primary Care Provider] - Please follow up with your Primary Care Physician in: 1-2 weeks Please Follow Up With: Zander Benoit MD When: as directed Disposition: Home Minutes spent on discharge:: 35 Patient Condition:: Stable Medical Necessity - Tobacco Use Smoking Status: Never smoker Meaningful Use Info Meaningful Use Diagnoses (Choose all that apply): AMI - AMI Aspirin given w/in 24hrs of arrival?: Yes ASA at discharge?: Yes Statins at discharge?: Yes Rolando/ARB at discharge?: Yes Beta Katarina at discharge?: Yes Done w/ Acute LA measure.: Yes Documented LVEF (%): 40 <Jeremie Mccloud - Last Filed: 01/27/19 15:08> Discharge Date and Diagnosis - Secondary Discharge Diagnosis Chronic Problems (Last Updated 01/27/19 @ 09:23 by Andie Aguilar) Presence of aortocoronary bypass graft (Chronic ~09/2000) CABG with CASPER to LAD, SVG to diagonal 1 and sequential to diagonal 2, SVG to OM1, and SVG to RCA 09/2000 Essential hypertension (Chronic) Atherosclerosis of coronary artery bypass graft without angina pectoris (Chronic) LEFT MAIN: distal: 95 % Stenosis; LEFT ANTERIOR DESCENDING ARTERY: PROX LAD: Moderate calcification MID LAD: s/p SP: 100 % Stenosis, and distal vessel filling from CASPER flow with no angiographically significant disease distal to the CASPER anastomsis; CIRCUMFLEX ARTERY: OSTIAL CIRC: is occluded PROX CIRC: Moderate calcification; RIGHT CORONARY ARTERY: Severe calcification diffuse, eccentric, hazy, 85 % Stenosis DISTAL RCA: is occluded with portions of the RPDA and RPL system filling late, faintly, and partially from bridging collaterals; GRAFTS: CASPER graft to the Mid LAD is patent; Saphenous Vein graft to the 1st Diagonal is patent with a sequential portion to the 2nd Diagonal branch being patent with no angiographically significant appearing disease distal to the graft attachments; Saphenous Vein graft to the 1st OM is totally occluded; Saphenous Vein graft to the RCA is totally occluded; COLLATERAL FLOW: Collateral flow from Left to Right, Collateral flow from Left to Left, Collateral flow from Right to Right; AORTIC ROOT: Angiographically normal Per Cath 01/26/19 Hyperlipidemia (Chronic) Hospital Course and Treatment Summary of Care Provided: This patient was seen in conjunction with Brandyn Lepe PA-C . I have independently interviewed and examined the patient and reviewed pertinent historical, laboratory, and other data. Please refer to Brandyn Lepe PA-C note for details of this patient's presentation, findings, and recommendations. I have reviewed Brandyn Lepe PA-C note and concur with documented findings. In brief, patient 78-year-old gentleman with past medical history single for CAD status post CABG who presented with chest pain an assessment of acute NSTEMI made patient admitted to a monitored bed treated per protocol and subsequently underwent left heart catheterization results stated above. Assessment: 1. Acute NSTEMI 2. CAD with previous CABG 3. Essential hypertension 4. Dyslipidemia 5. Obesity with BMI of 36 Hospital course: As documented above - Physical Exam Vitals/I&O's: Vital Signs Temp Pulse Resp BP Pulse Ox 97.7 F L 62 18 121/70 H 94 01/27/19 12:40 01/27/19 12:40 01/27/19 12:40 01/27/19 12:40 01/27/19 12:40 Oxygen Delivery Method Room Air Weight: 113.9 kg Body Mass Index (BMI) 36.0 Intake and Output for Last 24 Hours 01/25/19 01/26/19 01/27/19 23:59 23:59 23:59 Intake Total 1377.80 / 1377.80 862.83 / 862.83 220 / 220 Balance 1377.80 / 1377.80 862.83 / 862.83 220 / 220 Laboratory Results 01/26/19 23:01: Troponin I 0.065 H 01/27/19 05:38: Sodium 137, Potassium 3.9, Chloride 104, Carbon Dioxide 30.0, Anion Gap 3 L, BUN 19 H, Creatinine 1.23, Estim Creat Clear Calc 51.11, Est GFR (MDRD) Af Amer 73, Est GFR (MDRD) Non-Af 60, BUN/Creatinine Ratio 15.4, Glucose 123 H, Calcium 9.0 01/27/19 05:38: Hgb 15.9, Hct 47.7 Code Visit Inpatient E&M: 04732 Disch Hosp
== END 2019-01-27 13:11 | disposition home or self-care (01) | DRG 282 ==
LOC: ED 03:18 → PCU 05:11
PROVIDERS: Family Medicine; Internal Medicine Cardiovascular Disease; Physician Assistant; Admitting Provider Hospitalist; Emergency Provider Emergency Medicine; Family Provider Family Medicine; PCP Family Medicine; Referring Provider Hospitalist; Visit Provider Internal Medicine
DX: I21.4 Non-ST elevation (NSTEMI) myocardial infarction (principal); E78.5 Hyperlipidemia, unspecified; E66.9 Obesity, unspecified; N18.3 Chronic kidney disease, stage 3 (moderate); I12.9 Hypertensive chronic kidney disease with stage 1 through stage 4 chronic kidney disease, or unspecified chronic kidney disease; R00.1 Bradycardia, unspecified; I25.110 Atherosclerotic heart disease of native coronary artery with unstable angina pectoris; I25.710 Atherosclerosis of autologous vein coronary artery bypass graft(s) with unstable angina pectoris; Z95.1 Presence of aortocoronary bypass graft; Z68.36 Body mass index [BMI] 36.0-36.9, adult
CPT/HCPCS: 36415; 71045; 80048; 84484; 85014; 85018; 85025; 85027; 85610; 85730; 93005; 93459; 97802; 99152; 99153; 99285; J7030; J7040; A4216; C1769; C1894

== ENCOUNTER → 2019-04-10 07:41 | Outpatient (CLI) | payer MEDICARE, OTHER, SELFPAY ==
[2019-01-24 05:44] VITALS: BMI 36.0
--- NOTE | 2019-04-10 07:42 | AAVD_ITS ---
Reason For Study: Testing prior to to ECP therapy Aorta Measurements Aorta Doppler Measurements Proximal aorta measures1.66 x 1.66cm. in cross- Peak systolic flow velocities within the proximal sectional axis. aorta measure 57.8 cm/sec. Proximal aorta measures1.69cm. in longitudinal Peak systolic flow velocities within the mid aorta axis. measure 132.6 cm/sec. Mid aorta measures1.38 x 1.40cm. in cross- Peak systolic flow velocities within the distal sectional axis. aorta measure 103.4 cm/sec. Mid aorta measures1.39cm. in longitudinal axis. Distal aorta measures1.31 x 1.33cm. in cross- sectional axis. Distal aorta measures1.35cm. in longitudinal axis. Left Iliac Artery Left iliac artery measures 1.15 x 1.15 cm. in the cross-sectional axis. Left iliac artery measures 1.15 cm. in the longitudinal axis. Peak systolic velocity in the left iliac artery measures 89.7 cm/sec. Right Iliac Artery Right iliac artery measures 1.00 x 1.00 cm. in the cross-sectional axis. Right iliac artery measures 1.00 cm. in the longitudinal axis. Peak systolic velocity in the right iliac artery measures 94.2 cm/sec. Procedure Aorta IVC Iliac vasculature or bypass grafts [id number]. Exam performed in department. Interpretation Summary 1. No aortoiliac stenosis or aneurysm. Ordering Physician: Raúl Crowley Referring Physician: Matias Lopez MD Performed By: Nikole Durand RVT
== END ==
PROVIDERS: Family Provider Family Medicine; PCP Family Medicine; Referring Provider Nurse Practitioner Family; Visit Provider Nurse Practitioner Family
DX: Z01.818 Encounter for other preprocedural examination (principal); I25.810 Atherosclerosis of coronary artery bypass graft(s) without angina pectoris; R07.9 Chest pain, unspecified; I10 Essential (primary) hypertension; E78.5 Hyperlipidemia, unspecified; I25.2 Old myocardial infarction; Z95.1 Presence of aortocoronary bypass graft
CPT/HCPCS: 93978

== ENCOUNTER → 2019-06-23 10:16 | Outpatient (CLI) | payer MEDICARE, OTHER, SELFPAY ==
[2019-06-12 15:02] VITALS: BMI 36.6
== END ==
PROVIDERS: PCP Family Medicine; Referring Provider Internal Medicine Cardiovascular Disease; Visit Provider Internal Medicine Cardiovascular Disease
DX: I25.708 Atherosclerosis of coronary artery bypass graft(s), unspecified, with other forms of angina pectoris (principal)

== ENCOUNTER 2019-07-07 13:00 | Outpatient (RCR) | payer MEDICARE, OTHER, SELFPAY ==
[2019-06-12 15:02] VITALS: BMI 36.6
== END 2019-07-07 23:59 ==
LOC: CR 13:00
PROVIDERS: PCP Family Medicine; Visit Provider Internal Medicine Cardiovascular Disease
DX: I25.708 Atherosclerosis of coronary artery bypass graft(s), unspecified, with other forms of angina pectoris (principal)
CPT/HCPCS: 92971; G0166

== ENCOUNTER 2019-07-08 09:55 | Outpatient (RCR) | payer MEDICARE, OTHER, SELFPAY ==
[2019-06-12 15:02] VITALS: BMI 36.6
== END 2019-08-06 23:59 ==
LOC: CR 09:55
PROVIDERS: PCP Family Medicine; Visit Provider Internal Medicine Cardiovascular Disease
DX: I25.708 Atherosclerosis of coronary artery bypass graft(s), unspecified, with other forms of angina pectoris (principal)
CPT/HCPCS: 92971; G0166

== ENCOUNTER 2019-08-11 06:52 | Outpatient (RCR) | payer OTHER, MEDICARE, SELFPAY ==
[2019-06-12 15:02] VITALS: BMI 36.6
== END 2019-09-06 23:59 ==
LOC: CR 06:52
PROVIDERS: PCP Family Medicine; Referring Provider Internal Medicine Cardiovascular Disease; Visit Provider Internal Medicine Cardiovascular Disease
DX: I25.708 Atherosclerosis of coronary artery bypass graft(s), unspecified, with other forms of angina pectoris (principal)

== ENCOUNTER 2020-01-06 10:30 | Outpatient (RCR) | payer MEDICARE, OTHER, SELFPAY ==
[2019-09-25 09:09] VITALS: BMI 36.7
== END 2020-01-06 23:59 ==
LOC: CR 10:30
PROVIDERS: PCP Family Medicine; Referring Provider Internal Medicine Cardiovascular Disease; Visit Provider Internal Medicine Cardiovascular Disease
DX: I25.118 Atherosclerotic heart disease of native coronary artery with other forms of angina pectoris (principal)
CPT/HCPCS: 92971; G0166

== ENCOUNTER 2020-02-01 10:30 | Outpatient (RCR) | payer MEDICARE, OTHER, SELFPAY ==
[2019-12-31 09:13] VITALS: BMI 36.4
== END 2020-02-06 23:59 ==
LOC: CR 10:30
PROVIDERS: PCP Family Medicine; Referring Provider Internal Medicine Cardiovascular Disease; Visit Provider Internal Medicine Cardiovascular Disease
DX: I25.118 Atherosclerotic heart disease of native coronary artery with other forms of angina pectoris (principal)
CPT/HCPCS: 92971; G0166